=== PATIENT | female | born 1940 | race Caucasian/White ===

== ENCOUNTER → 2020-09-20 14:15 | Outpatient (BNVA) | payer MEDICARE, SELFPAY | PROVIDERS: Family Provider Family Medicine; Visit Provider Obstetrics & Gynecology | DX: R32 Unspecified urinary incontinence (principal) | CPT/HCPCS: 87086 ==

== ENCOUNTER 2020-09-25 21:10 | Emergency (ER) | payer MEDICARE, SELFPAY ==
[2020-09-25 21:13] VITALS: BP 142/72; PULSE 91; RESP 17; TEMP 36.6; O2SAT 95; BMI 28.5
[2020-09-25 21:18] VITALS: BP 142/72; PULSE 90; RESP 20; O2SAT 95
[2020-09-25 21:30] LABS: Basophils % 0.6 %; Eosinophils # 0.1 10^3/uL (0.0-0.8); Eosinophils % 1.5 %; Hematocrit 24.2 % (37.0-47.0); Hemoglobin 7.3 g/dL (11.5-15.3); Lymphocytes # 0.9 10^3/uL (0.8-4.8); Lymphocytes % 18.2 %; Mean Corpuscular HGB Conc 30.2 g/dL (30.0-36.0); Mean Corpuscular Hemoglobin 30.9 pg (28.0-34.0); Mean Corpuscular Volume 102.5 fL (81-99); Mean Platelet Volume 8.4 fL (7.4-10.4); Monocytes # 0.4 10^3/uL (0.2-0.9); Monocytes % 8.9 %; Neutrophils % 69.7 %; Nucleated Red Blood Cells % 0 %; Platelet Count 289 10^3/cmm (130-400); Red Blood Count 2.36 10^6/uL (4.1-5.3); Red Cell Distribution Width 15.9 % (12.1-15.1); White Blood Count 4.7 10^3/uL (4.0-10.0)
[2020-09-25 21:44] LABS: Alanine Aminotransferase 13 U/L (0-33); Alkaline Phosphatase 102 IU/L (35-105); Anion Gap 9.4 (5-19); Aspartate Amino Transferase 13 U/L (0-32); Blood Urea Nitrogen 18 mg/dL (8-23); Calcium 7.6 mg/dL (8.5-10.5); Carbon Dioxide 27 mmol/L (22-29); Chloride 101 mmol/L (98-107); Creatinine Clr Calc Pharmacy 61.9629; Globulin 2.6 g/dL (1.3-4.6); Glucose 115 mg/dL (65-115); Osmolality Calculated 279 mOsm/kg (285-295); Potassium 4.4 mmol/L (3.5-5.1); Sodium 133 mmol/L (136-145); Total Bilirubin 0.2 mg/dL (0.15-1.2); Total Protein 4.6 g/dL (6.6-8.7)
[2020-09-25 22:00] VITALS: BP 126/61; PULSE 79; RESP 19; O2SAT 97
--- NOTE | 2020-09-25 22:00 | ED_ITS ---
HPI - Recheck/Abnormal Lab/Rx General: Chief Complaint: Recheck/Abnormal Lab/Rx Stated Complaint: low hemoglobin Time Seen by Provider: 09/25/20 21:14 History of Present Illness: HPI narrative: The patient is a 80-year-old female with a sacral pressure ulcer who comes to the ER sent after she was admitted to a custodial for wound care of this ulcer. Her admission hemoglobin was 6.8. She is asymptomatic of this and denies shortness of breath. She says she has no known history of anemia or GI bleeds. Denies black or bloody stool or vomit. Hemoglobin on arrival here is 7.3 and her Hemoccult stool is negative. Stable for discharge back to the custodial Review of Systems General: Reports: 10 or more systems reviewed and unremarkable except in HPI and below Const: Denies: fatigue Eyes: Denies: change in vision, blurry vision or eye redness ENMT: Denies: throat pain, swelling of lips/tongue, ear or mastoid pain or nasal congestion Card: Denies: chest pain, palpitations, irregular heart rhythm, edema, dyspnea on exertion or orthopnea Resp: Denies: dyspnea, productive cough or non-productive cough GI: Denies: abdominal pain, diarrhea or GI cramping : Denies: flank pain, difficulty voiding, urinary frequency or urinary urgency Musc: Denies: neck pain, back pain, extremity pain, joint pain, joint redness, limited range of motion or muscle weakness Skin/Breast: Denies: rash, pruritus, erythema, skin pain or skin tenderness Neuro: Denies: headache(s), numbness in extremities, weakness in extremities, sensory changes, difficulty walking, dizziness, confusion or Slurred speech pr esent Psych: Denies: anxiety or depression Endo: Denies: polyuria All/Imm: Denies: urticaria, throat swelling or tongue swelling PFSH ED PFSH: Medical History (Updated 09/25/20 @ 23:06 by Fab Champagne MD) Pressure ulcer of coccygeal region, stage 3 Shingles years ago Surgical History (Updated 09/24/20 @ 16:18 by Felipe Mcgrath MD) S/P tonsillectomy and adenoidectomy Family History Mother Stomach cancer Father Stroke Social History (Updated 09/24/20 @ 16:19 by Felipe Mcgrath MD) Smoking and tobacco status: former smoker Quit status (tobacco): has quit using tobacco Year quit tobacco: years ago Alcohol intake: never Physical Exam Const: COMMON NORMALS: no acute distress, average body habitus, patient oriented x3, no limitations, healthy appearing, alert and well nourished GENERAL APPEARANCE: cooperative, comfortable, well kempt and well developed ORIENTATION/CONSCIOUSNESS: Yes awake, Yes oriented to person, Yes oriented to place and Yes oriented to time HENMT: COMMON NORMALS: normocephalic, external ears normal and Normal external nose present HEAD & SCALP: normal to inspection and normocephalic NOSE: Normal external nose present EXTERNAL EAR: Yes external ears normal MOUTH: Normal oral and palatal mucosa present THROAT: posterior oropharynx normal Eye: COMMON NORMALS: Equal, round and reactive pupils present and EOMs intact bilaterally GENERAL EYE: appearance normal, both eyes and all related structures PUPIL: Yes Equal, round and reactive pupils present Neck/C-Spine: COMMON NORMALS: full ROM, no lymphadenopathy, no meningeal signs and no JVD GENERAL: Yes normal visual inspection Lymph: LYMPHATIC: no lymphadenopathy noted Chest: COMMONS NORMALS: normal inspection of the chest and normal palpation of entire chest wall Resp: COMMON NORMALS: normal respiratory effort, No retractions, No use of accessory muscles, clear to auscultation bilaterally and percussion normal EFFORT & INSPECTION: Yes able to speak in complete sentences AUSCULTATION: clear to auscultation bilaterally PERCUSSION: percussion normal Cardio: COMMON NORMALS: no JVD, regular rate, regular rhythm, S1 normal heart sound present, S2 normal heart sound present and Peripheral pulses 2+ throughout RATE: regular rate RHYTHM: regular rhythm HEART SOUNDS: S1 normal heart sound present and S2 normal heart sound present PERIPHERAL PULSES: Peripheral pulses 2+ throughout GI: COMMON NORMALS: Normal to inspection, nondistended, normoactive bowel sounds present, Soft to palpation, non-tender and no masses INSPECTION: Yes normal to inspection PALPATION: Yes Soft to palpation : COMMON NORMALS: Yes no CVA tenderness BLADDER/KIDNEY EXAM: Yes no CVA tenderness Back/Pelvis: COMMON NORMALS: no CVA tenderness, thoracic and lumbar spine normal to inspection, no thoracic nor lumbar tenderness and thoraco-lumbar ROM normal OTHER: The patient has a stage III ulcer to her sacral region. It is clean and appears well taken care of. She is admitted to a custodial for care of this. Extremity: COMMON NORMALS: normal to inspection, full ROM, capillary refill normal, no joint enlargement and no pedal edema GENERAL: Yes normal exam except as noted Neuro: COMMON NORMALS: patient oriented x3, CN's II-XII intact bilaterally, moves all extremities, no focal motor deficits, no sensory deficits noted and gait normal SENSORIUM/ORIENTATION: Yes alert, Yes oriented to person, Yes oriented to place and Yes oriented to time MENINGEAL SIGNS: Yes no meningeal signs Psych: COMMON NORMALS: mental status grossly normal, Normal thought process present, cooperative, normal affect and speech normal APPEARANCE: Yes well kempt ATTITUDE: Yes calm SPEECH: Yes normal speech THOUGHT PROCESS: Normal thought process present Skin: COMMON NORMALS: no rashes or lesions noted GENERAL SKIN EXAM: no rashes or lesions noted Course Vital Signs: Vital signs: Vital Signs Temperature 97.8 F 09/25/20 21:13 Pulse Rate 90 09/25/20 21:18 Respiratory Rate 20 H 09/25/20 21:18 Blood Pressure 142/72 09/25/20 21:18 Pulse Oximetry 95 09/25/20 21:18 MDM - Recheck/Abnormal Lab/Rx MDM Narrative: Medical decision making narrative: The patient came here after she was admitted to a custodial for her sacral ulcer with a hemoglobin of 6.8. She is asymptomatic of this. Hemoccult stool in the ED is negative. Hemoglobin on arrival is 7.3. Stable for discharge back to the custodial. Recommended repeat in a few days to make sure it is stable. Lab Data: Labs: Lab Results 09/25/20 09/25/20 09/25/20 Range/Units 09:31 21:18 21:18 WBC 4.7 (4.0-10.0) 10^3/ uL RBC 2.36 L (4.1-5.3) 10^6/u L Hgb 7.3 L (11.5-15.3) g/dL Hct 24.2 L (37.0-47.0) % MCV 102.5 H (81-99) fL MCH 30.9 (28.0-34.0) pg MCHC 30.2 (30.0-36.0) g/dL RDW 15.9 H (12.1-15.1) % Plt Count 289 (130-400) 10^3/c mm MPV 8.4 (7.4-10.4) fL Neut % (Auto) 69.7 % Lymph % (Auto) 18.2 % Camp % (Auto) 8.9 % Eos % (Auto) 1.5 % Baso % (Auto) 0.6 % Neut # (Auto) 3.30 (1.8-7.7) 10^3/u L Lymph # (Auto) 0.9 (0.8-4.8) 10^3/u L Camp # (Auto) 0.4 (0.2-0.9) 10^3/u L Eos # (Auto) 0.1 (0.0-0.8) 10^3/u L Baso # (Auto) 0.0 (0.0-0.1) 10^3/u L Nucleated RBC % (a uto) 0 % Nucleated RBCs # 0.0 /100WBC Sodium 133 L (136-145) mmol/L Potassium 4.4 (3.5-5.1) mmol/L Chloride 101 (98-107) mmol/L Carbon Dioxide 27 (22-29) mmol/L Anion Gap 9.4 (5-19) BUN 18 (8-23) mg/dL Creatinine 0.8 (0.5-0.9) mg/dL GFR Calculation Not Reportable Glucose 115 (65-115) mg/dL Calculated Osmolal ity 279 L (285-295) mOsm/k g Calcium 7.6 L (8.5-10.5) mg/dL Total Bilirubin 0.2 (0.15-1.2) mg/dL AST 13 (0-32) U/L ALT 13 (0-33) U/L Alkaline Phosphata se 102 (35-105) IU/L Total Protein 4.6 L (6.6-8.7) g/dL Albumin 2.0 L (3.5-5.2) g/dL Globulin 2.6 (1.3-4.6) g/dL Blood Type B Positive Rho(D) Type Positive Antibody Screen Negative Discharge Plan Discharge Patient Disposition: [facility] Clinical Impression: Pressure ulcer of coccygeal region, stage 3, Anemia Condition: Stable Prescriptions: No Action clindamycin HCl 300 mg capsule 300 mg PO TID RF: 0 Discharge Orders: Discharge ED (Routine); Ordered 09/25/20 Ordered By: Fab Champagne Referrals: Emily Cabral DO [Primary Care Provider] - Discharge Diet: Advance as tolerated Discharge Activity: Resume usual activity Patient Instructions: Anemia (ED) Activity Restrictions/Additional Instructions: You likely have chronic anemia related to your age and multiple medical conditi ons including your sacral ulcer. Please continue to get care for that at the custodial and have your blood rechecked in a few days to make sure your anemia is stable or improving. Return to the ER if it is not. Coding Level of Care Code ED Professional Architect for Sarag Fwd Exam Comprehensive
[2020-09-25 23:00] VITALS: BP 138/59; PULSE 86; RESP 18; O2SAT 97
[2020-09-26 00:50] VITALS: BP 133/63; PULSE 95; O2SAT 93
[2020-09-26 01:16] VITALS: BP 150/63; PULSE 91; RESP 20; O2SAT 95
--- NOTE | 2020-09-26 01:40 | PC.NURSE ---
Pt given a snack of vanilla pudding and a cheese stick at this time with orange juice per request.
== END 2020-09-26 02:00 | disposition skilled nursing facility (03) ==
PROVIDERS: Emergency Provider Family Medicine; PCP Family Medicine
DX: D64.9 Anemia, unspecified (principal); L89.153 Pressure ulcer of sacral region, stage 3; Z87.891 Personal history of nicotine dependence
CPT/HCPCS: 12345; 80053; 85025; 86850; 86900; 99282

== ENCOUNTER 2020-09-26 12:00 | Outpatient (CLI) | payer MEDICARE, SELFPAY | END 2020-09-26 12:01 | disposition home or self-care (01) | PROVIDERS: PCP Family Medicine; Visit Provider Nurse Practitioner Family | DX: R62.7 Adult failure to thrive (principal); I50.1 Left ventricular failure, unspecified | CPT/HCPCS: 85014; 85018 ==

== ENCOUNTER → 2020-09-27 10:50 | Day surgery (SDC) | payer MEDICARE, SELFPAY ==
[2020-09-27] VITALS (8 sets, daily range): BP systolic 104–139; BP diastolic 57–83; PULSE 87–109; RESP 16–18; TEMP 36.5–37.4; O2SAT 94–99; BMI 29.4
[2020-09-27 11:42] LABS: Hematocrit 24.1 % (37.0-47.0)
[2020-09-27] MEDS: acetaminophen 325 mg Tablet 650 MG PO (12:20)
[2020-09-27] MEDS: diphenhydrAMINE 25 mg Capsule PO (12:20)
[2020-09-27] MEDS: sodium chloride 0.9% (100 ml) 100 ML IV (12:22)
[2020-09-27] MEDS: FUROsemide 10 mg/mL SDV 4mL 40 MG IVP (15:55)
== END ==
PROVIDERS: Nurse Practitioner Family; PCP Family Medicine; Visit Provider Nurse Practitioner Family
DX: D64.9 Anemia, unspecified (principal)
CPT/HCPCS: 36430; 85014; 85018; 86850; 86900; 86920; J0131; J1940; P9016

== ENCOUNTER 2020-10-11 04:07 | Inpatient (IN) | payer MEDICARE, SELFPAY ==
[2020-10-11] VITALS (88 sets, daily range): BP systolic 93–156; BP diastolic 43–94; PULSE 89–122; RESP 13–32; TEMP 36.4–38.2; O2SAT 90–100; BMI 29.4
--- NOTE | 2020-10-11 04:12 | CTR_ITS ---
PROCEDURE INFORMATION: Exam: CT Abdomen And Pelvis With Contrast Exam date and time: 10/11/2020 4:14 AM Age: 80 years old Clinical indication: Abdominal pain; Generalized; Patient HX: Diffuse abd pain with bloody stools TECHNIQUE: Imaging protocol: Computed tomography of the abdomen and pelvis with contrast. Radiation optimization: All CT scans at this facility use at least one of these dose optimization techniques: automated exposure control; mA and/or kV adjustment per patient size (includes targeted exams where dose is matched to clinical indication); or iterative reconstruction. Contrast material: OMNI 300; Contrast volume: 95 ml; Contrast route: INTRAVENOUS (IV); COMPARISON: No relevant prior studies available. RADIATION DOSE METRICS: Total DLP (mGy-cm): 961.83 FINDINGS: Pleural spaces: Moderate right and small left pleural effusions with segmental right lower lobe atelectasis. Liver: Normal. No mass. Gallbladder and bile ducts: No calcified stones. No pericholecystic inflammatory changes. No ductal dilation. Pancreas: Normal. No ductal dilation. Spleen: Calcified splenic granulomas. Adrenal glands: 14 mm heterogeneous right adrenal nodule. Kidneys and ureters: Normal. No hydronephrosis. Stomach and bowel: Numerous mildly dilated small bowel loops extending proximally from the terminal ileum with colonic distention, likely due to ileus. Appendix: Normal appendix. Intraperitoneal space: Large amount of pneumoperitoneum. Small amount of ascites with minimal layering debris in the pelvis. Vasculature: No abdominal aortic aneurysm. Lymph nodes: No enlarged lymph nodes. Urinary bladder: Unremarkable as visualized. Reproductive: Unremarkable as visualized. Bones/joints: Unremarkable. No acute fracture. Soft tissues: Small right inguinal hernia. Anasarca. CT/CT abdomen pelvis w con* [id number] IMPRESSION: 1. Large amount of pneumoperitoneum. This is compatible with perforated viscus in the absence of recent surgery. 2. Numerous mildly dilated small bowel loops extending proximally from the terminal ileum with colonic distention, likely due to ileus. 3. 14 mm heterogeneous right adrenal nodule. Consider 12 month follow-up adrenal CT. (Rafael Heaton, ACR White Paper, 2017) 4. Small amount of ascites with minimal layering debris in the pelvis. 5. Anasarca. 6. Moderate right and small left pleural effusions with segmental right lower lobe atelectasis. Radiation Dose CTDIVOL = (mGy): DLP = 961.83 (mGy-cm)
--- NOTE | 2020-10-11 04:14 | W.ED.ABDPA2 ---
HPI - Abdominal Pain General: Chief Complaint: Abdominal Pain Stated Complaint: ABD PAIN , BLOOD IN STOOL Time Seen by Provider: 10/11/20 04:11 Source: patient and EMS Mode of arrival: EMS Limitations: no limitations History of Present Illness: HPI narrative: 80-year-old female who presents here by EMS with abdominal pain. 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 She states that the pain is diffuse and is worsened tonight in 1 to be evaluated. States the pain is a 5 out of 10. She denies any vomiting or diarrhea. She denies any worsening improving factors. She has been afebrile. MD elicited complaint: abdominal pain Associated Symptoms: Reports hematochezia; Denies chills, diarrhea, dysuria, fever(s), nausea and vomiting Review of Systems Const: Denies: fever(s), chills, body aches or change in appetite Eyes: Denies: blurry vision or eye discomfort ENMT: Denies: throat pain or dental pain Card: Denies: chest pain Resp: Denies: dyspnea GI: Reports: abdominal pain and hematochezia; Denies: nausea, vomiting or diarrhea : Denies: dysuria Musc: Denies: neck pain or back pain Skin/Breast: Denies: rash Neuro: Denies: headache(s) Psych: Denies: depression Humberto/Lymph: Denies: easy bruising All/Imm: Denies: urticaria PFSH ED PFSH: Medical History (Updated 10/04/20 @ 00:01 by ) Pressure ulcer of coccygeal region, stage 3 Shingles years ago Surgical History (Updated 09/24/20 @ 16:18 by Felipe Mcgrath MD) S/P tonsillectomy and adenoidectomy Family History Mother Stomach cancer Father Stroke Social History (Updated 09/24/20 @ 16:19 by Felipe Mcgrath MD) Smoking and tobacco status: former smoker Quit status (tobacco): has quit using tobacco Year quit tobacco: years ago Alcohol intake: never Physical Exam Const: COMMON NORMALS: no acute distress, patient oriented x3 and healthy appearing HENMT: COMMON NORMALS: normocephalic and atraumatic HEAD & SCALP: normocephalic and atraumatic Eye: COMMON NORMALS: Equal, round and reactive pupils present and EOMs intact bilaterally PUPIL: Yes Equal, round and reactive pupils present Neck/C-Spine: COMMON NORMALS: full ROM and supple Chest: COMMONS NORMALS: normal inspection of the chest and normal palpation of entire chest wall Resp: COMMON NORMALS: normal respiratory effort, No retractions, No use of accessory muscles and clear to auscultation bilaterally AUSCULTATION: clear to auscultation bilaterally Cardio: COMMON NORMALS: regular rhythm and No murmurs present (Cardio) RATE: tachycardic RHYTHM: regular rhythm GI: COMMON NORMALS: Normal to inspection, nondistended, normoactive bowel sounds present, Soft to palpation and no masses PALPATION: Yes Soft to palpation OTHER: Diffuse abdominal tenderness, rectal exam shows brown stool that is Hemoccult positive. She does have a very large hemorrhoid noted on rectal exam Extremity: COMMON NORMALS: normal to inspection and full ROM Neuro: COMMON NORMALS: patient oriented x3, moves all extremities and no focal motor deficits Psych: COMMON NORMALS: mental status grossly normal, Normal thought process present and cooperative THOUGHT PROCESS: Normal thought process present Skin: COMMON NORMALS: no rashes or lesions noted and no wounds GENERAL SKIN EXAM: no rashes or lesions noted Course Vital Signs: Vital signs: Vital Signs Temperature 97.5 F L 10/11/20 04:14 Pulse Rate 119 H 10/11/20 05:07 Respiratory Rate 26 H 10/11/20 05:07 Blood Pressure 130/62 10/11/20 05:07 Pulse Oximetry 92 10/11/20 05:07 MDM - Abdominal Pain MDM Narrative: Medical decision making narrative: Munira presents here with abdominal pain. CT does show free air in her abdomen with likely bowel perforation. I spoke to Dr. Morales and he is going to take her to the operating room I will start her on IV antibiotics. I informed her of this and she does want surgery. I will try to contact her son and give him an update as well. Lab Data: Labs: Lab Results 10/11/20 10/11/20 10/11/20 Range/Units 04:18 04:18 04:18 WBC 8.7 (4.0-10.0) 10^3/ uL RBC 4.43 (4.1-5.3) 10^6/u L Hgb 13.3 (11.5-15.3) g/dL Hct 41.4 (37.0-47.0) % MCV 93.5 (81-99) fL MCH 30.0 (28.0-34.0) pg MCHC 32.1 (30.0-36.0) g/dL RDW 14.5 (12.1-15.1) % Plt Count 439 H (130-400) 10^3/c mm MPV 9.0 (7.4-10.4) fL Neut % (Auto) 87.0 % Lymph % (Auto) 6.5 % [place] % (Auto) 4.2 % Eos % (Auto) 0.8 % Baso % (Auto) 0.8 % Neut # (Auto) 7.58 (1.8-7.7) 10^3/u L Lymph # (Auto) 0.6 L (0.8-4.8) 10^3/u L [place] # (Auto) 0.4 (0.2-0.9) 10^3/u L Eos # (Auto) 0.1 (0.0-0.8) 10^3/u L Baso # (Auto) 0.1 (0.0-0.1) 10^3/u L Nucleated RBC % (a uto) 0 % Nucleated RBCs # 0.0 /100WBC Sodium 138 (136-145) mmol/L Potassium 3.0 L (3.5-5.1) mmol/L Chloride 98 (98-107) mmol/L Carbon Dioxide 30 H (22-29) mmol/L Anion Gap 13.0 (5-19) BUN 20 (8-23) mg/dL Creatinine 0.8 (0.5-0.9) mg/dL GFR Calculation Not Reportable Glucose 129 H (65-115) mg/dL Calculated Osmolal ity 290 (285-295) mOsm/k g Lactic Acid 1.7 (0.5-2.2) mmol/L Calcium 8.2 L (8.5-10.5) mg/dL Total Bilirubin 0.6 (0.15-1.2) mg/dL AST 8 (0-32) U/L ALT 6 (0-33) U/L Alkaline Phosphata se 107 H (35-105) IU/L Total Protein 5.7 L (6.6-8.7) g/dL Albumin 2.6 L (3.5-5.2) g/dL Globulin 3.1 (1.3-4.6) g/dL Lipase 21 (13-60) U/L Imaging Data ^: CT Abd/Pel: Attestation: I personally reviewed and interpreted this imaging study as follows: Radiologist's impression: [facility] [address] [address] Scan Report Signed Patient: Munira Crawford Unit #: [id number] : 1940 Age/Sex: 80 / F ADM Date: 10/11/20 Loc: ER Room/Bed: Attending Dr: Ordering Provider/Ordering MD: Kate eHlm MD Date of Service: 10/11/20 Procedure(s): CT abdomen pelvis w con* [id number] Accession Number(s): [id number] Report Number: [id number] PROCEDURE INFORMATION: Exam: CT Abdomen And Pelvis With Contrast Exam date and time: 10/11/2020 4:14 AM Age: 80 years old Clinical indication: Abdominal pain; Generalized; Patient HX: Diffuse abd pain with bloody stools TECHNIQUE: Imaging protocol: Computed tomography of the abdomen and pelvis with contrast. Radiation optimization: All CT scans at this facility use at least one of these dose optimization techniques: automated exposure control; mA and/or kV adjustment per patient size (includes targeted exams where dose is matched to clinical indication); or iterative reconstruction. Contrast material: OMNI 300; Contrast volume: 95 ml; Contrast route: INTRAVENOUS (IV); COMPARISON: No relevant prior studies available. RADIATION DOSE METRICS: Total DLP (mGy-cm): 961.83 FINDINGS: Pleural spaces: Moderate right and small left pleural effusions with segmental right lower lobe atelectasis. Liver: Normal. No mass. Gallbladder and bile ducts: No calcified stones. No pericholecystic inflammatory changes. No ductal dilation. Pancreas: Normal. No ductal dilation. Spleen: Calcified splenic granulomas. Adrenal glands: 14 mm heterogeneous right adrenal nodule. Kidneys and ureters: Normal. No hydronephrosis. Stomach and bowel: Numerous mildly dilated small bowel loops extending proximally from the terminal ileum with colonic distention, likely due to ileus. Appendix: Normal appendix. Intraperitoneal space: Large amount of pneumoperitoneum. Small amount of ascites with minimal layering debris in the pelvis. Vasculature: No abdominal aortic aneurysm. Lymph nodes: No enlarged lymph nodes. Urinary bladder: Unremarkable as visualized. Reproductive: Unremarkable as visualized. Bones/joints: Unremarkable. No acute fracture. Soft tissues: Small right inguinal hernia. Anasarca. CT/CT abdomen pelvis w con* [id number] IMPRESSION: 1. Large amount of pneumoperitoneum. This is compatible with perforated viscus in the absence of recent surgery. 2. Numerous mildly dilated small bowel loops extending proximally from the terminal ileum with colonic distention, likely due to ileus. 3. 14 mm heterogeneous right adrenal nodule. Consider 12 month follow-up adrenal CT. (Rafael Heaton, ACR White Paper, 2017) 4. Small amount of ascites with minimal layering debris in the pelvis. 5. Anasarca. 6. Moderate right and small left pleural effusions with segmental right lower lobe atelectasis. Radiation Dose CTDIVOL = (mGy): EKG Data ^: EKG 1: Attestation: I personally reviewed and interpreted this EKG as follows: EKG interpretation date: 10/11/20 EKG interpretation time: 04:22 Interpretation: sinus tach rbbb hr [address] elevation qrs 117 qtc 397 Critical Care Time Critical Care Time: Critical Care Time: Yes Total Critical Care Time: 35 Attestation: This case had a high probability of a clinically significant, sudden, or life threatening deterioration of this patient's condition which required my full and direct attention, intervention and personal management. Discharge Plan Discharge Prescriptions: No Action clindamycin HCl 300 mg capsule 300 mg PO TID RF: 0 bisacodyl 5 mg Suppository 5 mg WA DAILY RF: 0 Senna-S 8.6-50 mg Tablet 1 tab-cap PO DAILY PRN (Reason: Constipation) RF: 0 Prostat Tablet 1 tab PO BID RF: 0 Milk of Magnesia 400 mg/5 mL Suspension 5 ml PO DAILY PRN (Reason: Constipation) RF: 0 Miralax 1 packet PO DAILY RF: 0 Coding Level of Care Code ED Student Financial Aid Manager for Chg Fwd Exam Comprehensive
--- NOTE | 2020-10-11 04:15 | ECG_ITS ---
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 Measurements Intervals [place] Rate: 131 P: 47 [place]: 131 QRS: -53 QRSD: 117 T: 40 QT: 320 QTc: 473 Interpretive Statements SINUS TACHYCARDIA WITH FREQUENT SUPRAVENTRICULAR PREMATURE COMPLEXES PATTERN CONSISTENT WITH PULMONARY DISEASE RIGHT BUNDLE BRANCH BLOCK [120+ ms QRS DURATION, UPRIGHT V1, 40+ ms S IN I/aVL/V4/V5/V6] LEFT ANTERIOR FASCICULAR BLOCK [QRS AXIS <= -45, QR IN I, RS IN II] INFERIOR MYOCARDIAL INFARCTION , PROBABLY OLD [40+ ms Q WAVE AND/OR ST/T ABNORMALITY IN II/aVF] No previous ECG available for comparison Electronically Signed On 10-12-2020 19:14:18 ENVIRONMENTAL COORDINATOR by Reza Matta M.D. [id number]
[2020-10-11 04:36] LABS: Basophils # 0.1 10^3/uL (0.0-0.1); Basophils % 0.8 %; Eosinophils # 0.1 10^3/uL (0.0-0.8); Eosinophils % 0.8 %; Hematocrit 41.4 % (37.0-47.0); Hemoglobin 13.3 g/dL (11.5-15.3); Lymphocytes # 0.6 10^3/uL (0.8-4.8); Lymphocytes % 6.5 %; Mean Corpuscular HGB Conc 32.1 g/dL (30.0-36.0); Mean Corpuscular Volume 93.5 fL (81-99); Monocytes # 0.4 10^3/uL (0.2-0.9); Monocytes % 4.2 %; Neutrophils # 7.58 10^3/uL (1.8-7.7); Nucleated Red Blood Cells % 0 %; Platelet Count 439 10^3/cmm (130-400); Red Blood Count 4.43 10^6/uL (4.1-5.3); Red Cell Distribution Width 14.5 % (12.1-15.1); White Blood Count 8.7 10^3/uL (4.0-10.0)
[2020-10-11] MEDS: iohexol 300 mg/mL 100 mL Btl IV (04:44)
[2020-10-11 04:51] LABS: Alanine Aminotransferase 6 U/L (0-33); Albumin Level 2.6 g/dL (3.5-5.2); Alkaline Phosphatase 107 IU/L (35-105); Aspartate Amino Transferase 8 U/L (0-32); Blood Urea Nitrogen 20 mg/dL (8-23); Calcium 8.2 mg/dL (8.5-10.5); Carbon Dioxide 30 mmol/L (22-29); Chloride 98 mmol/L (98-107); Globulin 3.1 g/dL (1.3-4.6); Glucose 129 mg/dL (65-115); Lactic Sepsis W/Reflex 1.7 mmol/L (0.5-2.2); Lipase 21 U/L (13-60); Osmolality Calculated 290 mOsm/kg (285-295); Sodium 138 mmol/L (136-145); Total Bilirubin 0.6 mg/dL (0.15-1.2); Total Protein 5.7 g/dL (6.6-8.7)
[2020-10-11] MEDS: sodium chloride 0.9% 1,000 ML 999 ML IV ×2 (05:03→06:04)
[2020-10-11 05:35] LABS: Add Urine Microscopic? YES; Bilirubin Urine Neg (Negative); Blood Urine Neg (Negative); Glucose Urine UA Norm (Normal); Ketones Urine Negative (Negative); Leukocyte Esterase Urine 1+ (Negative); Nitrate Urine Negative (Negative); Protein Urine Trace (Negative); Specific Gravity, Urine 1.005 (1.005-1.030); Urine Appearance Cloudy (CLEAR); Urine Color Yellow (Yellow); Urobilinogen Urine Norm (Negative); pH Urine 7 (5-7)
[2020-10-11 05:39] LABS: RBC Urine 0-4 /hpf (0-2); WBC Urine 55-80 /hpf (0-5)
[2020-10-11 05:40] LABS: Add Urine Culture? Yes; Bacteria Urine 3+ /hpf; Squamous Epithelial Cell Urine 0-4 /hpf (0-5)
[2020-10-11] MEDS: piperacillin-tazobactam 3.375 GM in sodium chloride 0.9% (plus) 50 ML IV ×3 (06:00→21:12)
--- NOTE | 2020-10-11 06:22 | PM.HP ---
Providers/Chief Complaint Primary Care Provider: Emily Cabral DO Chief Complaint: ABD PAIN , BLOOD IN STOOL History of Present Illness Munira Crawford is a 80 year old female who lives at [facility] who presents to the ER with 2-day history of abdominal pain. Patient appears to be a bit confused, denies any nausea or vomiting. She appears to be on multiple medications for a bowel regimen. CT scan in the ER showed pneumoperitoneum of unknown etiology. Patient is currently hemodynamically stable. Medications/Allergies Home Medications Medication Instructions Recorded Confirmed Last Taken Type clindamycin HCl 300 mg capsule 300 mg PO TID 09/20/20 09/27/20 Unknown History Miralax 1 packet PO DAILY 09/27/20 09/27/20 Unknown History bisacodyl 5 mg DC DAILY 09/27/20 09/27/20 Unknown History magnesium hydroxide [Milk of 5 ml PO DAILY PRN 09/27/20 09/27/20 Unknown History Magnesia] pollens extract [Prostat] 1 tab PO BID 09/27/20 09/27/20 Unknown History sennosides-docusate sodium 1 tab-cap PO DAILY PRN 09/27/20 09/27/20 Unknown History [Senna-S] Allergies Allergy/AdvReac Type Severity Reaction Status Date / Time No Known Allergies Allergy Verified 10/11/20 04:18 PFSH Acute PFSH: Medical History Pressure ulcer of coccygeal region, stage 3 Shingles years ago Surgical History S/P tonsillectomy and adenoidectomy Family History Mother Stomach cancer Father Stroke Social History Smoking and tobacco status: former smoker Quit status (tobacco): has quit using tobacco Year quit tobacco: years ago Alcohol intake: never Vitals/I&O/Wt Last Vital Signs Temp 97.5 F L 10/11/20 04:14 Pulse 122 H 10/11/20 05:49 Resp 25 H 10/11/20 05:49 BP 156/69 10/11/20 05:49 Pulse Ox 92 10/11/20 05:49 Weight last 48 hrs Weight 188 lb Physical Exam Narrative: EXAM NARRATIVE: HEENT: Normocephalic Eye: Sclera /conjunctiva normal Respiratory and chest: Bilateral clear breath sounds on auscultation Cardiovascular: Normal S1 and S2 heart sounds Abdomen: Soft to palpation, distended, guarding present, right lower quadrant incision, right inguinal hernia Neurological: Oriented to place person and time Skin: Intact, no lesions appreciated on gross exam Data : 10/11/20 04:18 10/11/20 04:18 A&P Assessment and plan (1) Pneumoperitoneum of unknown etiology: 80-year-old female with 2-day history of abdominal pain with pneumoperitoneum of unknown etiology. Plan for laparoscopic possible laparotomy, possible bowel resection, possible ostomy Discussed the concerns with the patient as well as her son Dayo Crawford [phone] Status: Acute Attestations Medical Necessity Statement*: Pneumoperitoneum requiring greater than 2 nights of inpatient stay after surgery Coding Level of Care Code Acute Physicist [employer]oust[employer] for [facility] Diagnoses Pneumoperitoneum of unknown etiology K66.8
--- NOTE | 2020-10-11 06:35 | P.ANESASSM_ITS ---
Pre-Anesthetic Assessment Pre-Anesthetic Assessment: Height/Weight: Height 1.7 m Weight 85.275 kg Temp Pulse Resp BP Pulse Ox 99.7 F H 120 H 18 149/94 93 10/11/20 06:23 10/11/20 06:22 10/11/20 06:22 10/11/20 06:22 10/11/20 06:22 Preop Diagnosis: Pneumoperitoneum Proposed Procedure: Operation Date: 10/11/20 05:55 Proposed Procedures p Laparoscopic Colon Resection(Not Applicable) - Luis Morales MD Was Beta Carol Ann taken within 24 hours: N/A Social: Social History: No alcohol and No tobacco Exam: Pre-Anes Outpt Exam: alert and clear to auscultation bilaterally (clear but decreased R>L, slight murmur) Airway: Submandibular: WNL Cervical ROM: WNL MP: 2 Pulmonary: Pulmonary: COPD CV/HEM: CV/HEM: Murmur GI: Comments: Perforated bowel, bowel obstruction Neuropsych: Neuropsych: Dementia Anesthetic Plan: ASA status: 3E Anesthesia: General Risk of > 500 ml blood loss (7ml/kg in children): No PFSH Anesthesia PFSH: Medical History Pressure ulcer of coccygeal region, stage 3 Shingles years ago Surgical History S/P tonsillectomy and adenoidectomy Family History Mother Stomach cancer Father Stroke Social History Smoking and tobacco status: former smoker Quit status (tobacco): has quit using tobacco Year quit tobacco: years ago Alcohol intake: never Data Anesthesia CBC & Chem 7: 10/11/20 04:18 10/11/20 04:18 Other Labs: Laboratory Results - last 48 hr 10/11/20 10/11/20 10/11/20 04:18 04:18 04:18 WBC 8.7 RBC 4.43 Hgb 13.3 Hct 41.4 MCV 93.5 MCH 30.0 MCHC 32.1 RDW 14.5 Plt Count 439 H MPV 9.0 Neut % (Auto) 87.0 Lymph % (Auto) 6.5 [place] % (Auto) 4.2 Eos % (Auto) 0.8 Baso % (Auto) 0.8 Neut # (Auto) 7.58 Lymph # (Auto) 0.[address] # (Auto) 0.4 Eos # (Auto) 0.1 Baso # (Auto) 0.1 Nucleated RBC % (auto) 0 Nucleated RBCs # 0.0 Sodium 138 Potassium 3.0 L Chloride 98 Carbon Dioxide 30 H Anion Gap 13.0 BUN 20 Creatinine 0.8 GFR Calculation Not Reportable Glucose 129 H Calculated Osmolality 290 Lactic Acid 1.7 Calcium 8.2 L Total Bilirubin 0.6 AST 8 ALT 6 Alkaline Phosphatase 107 H Total Protein 5.7 L Albumin 2.6 L Globulin 3.1 Lipase 21 Urine Color Urine Appearance Urine pH Ur Specific Mitchell Urine Protein Urine Glucose (UA) Urine Ketones Urine Blood Urine Nitrate Urine Bilirubin Urine Urobilinogen Ur Leukocyte Esterase Urine RBC Urine WBC Ur Squamous Epith Cells Amorphous Sediment Urine Bacteria 10/11/20 04:35 WBC RBC Hgb Hct MCV MCH MCHC RDW Plt Count MPV Neut % (Auto) Lymph % (Auto) [place] % (Auto) Eos % (Auto) Baso % (Auto) Neut # (Auto) Lymph # (Auto) [place] # (Auto) Eos # (Auto) Baso # (Auto) Nucleated RBC % (auto) Nucleated RBCs # Sodium Potassium Chloride Carbon Dioxide Anion Gap BUN Creatinine GFR Calculation Glucose Calculated Osmolality Lactic Acid Calcium Total Bilirubin AST ALT Alkaline Phosphatase Total Protein Albumin Globulin Lipase Urine Color Yellow Urine Appearance Cloudy Urine pH 7 Ur Specific Mitchell 1.005 Urine Protein Trace Urine Glucose (UA) Norm Urine Ketones Negative Urine Blood Neg Urine Nitrate Negative Urine Bilirubin Neg Urine Urobilinogen Norm Ur Leukocyte Esterase 1+ H Urine RBC 0-4 H Urine WBC 55-80 H Ur Squamous Epith Cells 0-4 H Amorphous Sediment Not Reportable Urine Bacteria 3+ H Cardiac Studies: No Data to Display
--- NOTE | 2020-10-11 09:04 | P.OP_ITS ---
Operative Report Date of procedure: October 11, 2020 Pre-op Diagnosis: Pneumoperitoneum of unknown etiology Post-op Diagnosis: Stercoral perforation of the cecum causing pneumoperitoneum and fecal contamination Procedure Done: Diagnostic laparoscopy Open right hemicolectomy with stapled ileocolic [id number] anastomosis Pathology: Ileum, cecum, ascending colon and proximal transverse colon Surgeon: Luis Morales Anesthesia: General Estimated blood loss (mL): 25 IV fluids (mL): 2,200 Urine output (mL): 200 Condition: stable Disposition: PACU Procedure: The patient was taken to the operating room and placed in supine under general anesthesia after IV antibiotic had been administered. A Ann catheter was placed and the abdomen was prepped and draped in a sterile manner. A 2 cm midline supraumbilical incision was made and using open Kellogg technique the peritoneal cavity was entered and an 11 mm port was placed and 15 mm of pneumoperitoneum was created. 10 mm 30? scope was introduced. 5 mm port was placed in the midclavicular line in the left upper quadrant, left lower quadrant as well as in the suprapubic area under direct visualization. The patient was placed in Trendelenburg position and steep tilt to the left placing the small bowel in the left side within the peritoneal cavity and the transverse colon was retracted superiorly. The cecum was retracted laterally and the tenting of the ileocolic pedicle was noted. The peritoneum overlying the pedicle was opened and a window created posterior to the pedicle just late ral to the third portion of the duodenum. Dissection was carried superiorly lateral to the duodenum along the avascular plane. At this point the opening in the cecum with drainage of stool was noted which was the source of the pneumoperitoneum. I therefore decided to convert to a laparotomy to prevent further contamination. The umbilical incision was extended superiorly and inferiorly using 15 blade, subcutaneous tissue, linea alba was divided to enter the peritoneal cavity. The perforation in the cecum was closed with 3-0 Vicryl suture. Using LigaSure the ileocolic pedicle was divided. The avascular plane was dissected laterally towards the right paracolic gutter and superiorly towards the hepatic flexure.The transverse mesocolon was divided using LigaSure and this was continued medially. The right branch of mid colic vessels were skeletonized and divided with LigaSure. The anterior leaflet of the greater omentum was divided near the midpoint of the transverse colon to enter the lesser sac. The greater omentum was divided using LigaSure and the hepatic flexure was taken down. The dissection was carried along the line of Toldt until the ascending colon and down to ileum to completely free it up. The mesentery of the terminal ileum was divided using LigaSure and the mobilized colon and small bowel was exteriorized. Interrupted 4-0 Vicryl suture was placed to approximate the ileum to the transverse colon and enterotomies were created on the transverse colon and small bowel and and 75 mm blue load WILNER stapler was introduced and fired creating a [id number] stapled anastomosis. There was no bleeding noted from the staple line and enterotomies were grasped with Allis clamps and another load of 75 mm blue load WILNER stapler x 2 was fired to resect the specimen distal to the enterotomies. 4-0 Vicryl Lembert sutures were placed on the edges and the intersection of the staple line. The bowel was reintroduced into the peritoneal cavity, with the omentum covering the anastomosis. The peritoneal cavity was irrigated with 3 L of warm saline and the fascia in the midline was closed using running #1 looped PDS. 20cc of saline mixed with 20 cc of Exparel mixed with 20cc of 0.5% Marcaine was infiltrated around the incisions. The skin incisions were closed with guzman and covered with sterile dressings. The patient was extubated and transferred to recovery room with an NG tube and Ann catheter in place.
--- NOTE | 2020-10-11 10:09 | SUR.PHASEI ---
pt recieved to pacu sleepy with oral airwy in place vss iv patent LR TO RTWRIST #18 IV AT 150ML/HR APPROX , ALSO ARTLINE TO RT WRIST, ZEROED WITH CONTINOUS PRESSURES APPROX 10 POINTS HIGHER THAN CUFF PRESSURE TO LT ARM. IV # 20 JELCO PATENT WITH NS AT KVO RATE, ABD WITH MIDLINE DRESSING D/I WITH SMALL 1-2 CM SITE OF LT PINK DRAINAGE MARKED, 3 PORT SITES WITH FELISHA AND EXOFIN D/I WITH LOWER ABD SITE OOZING CLEAR PINK SECRETIONS IN SMALL AMT TO GOWN., BILAT SCDS ON , PT SLEEPS WITH GOOD RESP NOTED 0930 PT AWAKES AND ORAL AIRWAY OUT PT VERBALIZED NO TO QUESTIONS OF PAIN AND NAUSEA AND YES TO COLD, PT GIVEN 3 WARM BLANKETS , ABD SOFT NO FURTHER DRAINAGE NOTED FROM LOWER PORT SITE, PT QUICKLY BACK TO SLEEP VSS 1015 APPROX 500ML OF LR INFUSED , RATE SLOWED TO KVO, SATS 100% BP STABLE APPOX 10 ML CLEAR YELLOW URINE NOTED TO KHAN TUBING, PT SLEEPS IF NOT DISTURBED.
--- NOTE | 2020-10-11 10:11 | P.ANES_ITS ---
Anesthesia Procedures Procedure/Date: 10/11/20 Arterial Line: Time Out Performed: Yes Consent: requested by attending/covering physician, risks and benefits reviewed and patient agrees to proceed Size (Gauge): 20 Technique Used: guide wire technique Post- Procedure: dry sterile dressing placed Patient Tolerated Procedure: well C omplications: none Site: right and radial
--- NOTE | 2020-10-11 10:11 | P.ANESPOST_ITS ---
Inpatient post-anesthesia follow up: Airway intact: Yes Vital signs: Temperature 98.3 F Pulse Rate [Monito r] 119 Pulse Rate 89 Respiratory Rate 17 Blood Pressure [Ri ght Arm] 148/74 Blood Pressure 112/66 Pulse Oximetry 100 Oxygen Delivery Me thod Simple Mask Oxygen Flow Rate 8 Fraction of Inspir ed Oxygen Hydration adequate: Yes Nausea and vomiting: No Pain level: 3 [place] tional Comments: Sedated, stable no pressors.
--- NOTE | 2020-10-11 10:11 | ANES.PROC ---
Anesthesia Procedures Procedure/Date: 10/11/20 Arterial Line: Time Out Performed: Yes Consent: requested by attending/covering physician, risks and benefits reviewed and patient agrees to proceed Size (Gauge): 20 Technique Used: guide wire technique Post-Procedure: dry sterile dressing placed Patient Tolerated Procedure: well Complications: none Site: right and radial
--- NOTE | 2020-10-11 10:39 | PM.CONSULT ---
Providers/Reason For Consult Consulting Physican/Specialty*: ki Pulido Reason for Consult*: Medical management Primary Care Provider: Emily Cabral DO History of Present Illness History of Present Illness Munira Crawford is a 80 year old female who presented from a local group home where she resides. According to nursing staff there they have been having issues with anemia lately and she is required outpatient transfusion. Work-up was in progress of this. She had been having blood in her stool for the last week. She had nausea for the last 3 days and had one episode of emesis. She has had decreased p.o. intake. She has not had any fever. She had recently been seen by gynecology for prolapsed uterus, and was not deemed to be a surgical candidate. Further history is difficult to obtain from the patient as she is significantly sleepy postoperative. A review of systems cannot be obtained secondary to this as well. Review of Systems General: Reports: ROS unobtainable due to mental status (Significant lethargy following anesthesia for surgery) Meds/Allergies Home Medications and Allergies Home Medications Medication Instructions Recorded Confirmed Last Taken Type clindamycin HCl 300 mg capsule 300 mg PO TID 09/20/20 09/27/20 Unknown History Miralax 1 packet PO DAILY 09/27/20 09/27/20 Unknown History bisacodyl 5 mg NC DAILY 09/27/20 09/27/20 Unknown History magnesium hydroxide [Milk of 5 ml PO DAILY PRN 09/27/20 09/27/20 Unknown History Magnesia] pollens extract [Prostat] 1 tab PO BID 09/27/20 09/27/20 Unknown History sennosides-docusate sodium 1 tab-cap PO DAILY PRN 09/27/20 09/27/20 Unknown History [Senna-S] Allergies Allergy/AdvReac Type Severity Reaction Status Date / Time No Known Allergies Allergy Verified 10/11/20 04:18 PFSH Acute PFSH: Medical History (Updated 10/11/20 @ 10:53 by Reji Jorgensen MD) Anemia Heart murmur Pressure ulcer of coccygeal region, stage 3 Shingles years ago Uterovaginal prolapse, incomplete Surgical History S/P tonsillectomy and adenoidectomy Family History Mother Stomach cancer Father Stroke Social History Smoking and tobacco status: former smoker Quit status (tobacco): has quit using tobacco Year quit tobacco: years ago Alcohol intake: never Vitals/I&O/Wt Last Vital Signs Temp 98.3 F 10/11/20 09:20 Pulse 92 10/11/20 10:20 Resp 16 10/11/20 10:20 BP 127/66 10/11/20 10:20 Pulse Ox 100 10/11/20 10:20 10/10/20 10/11/20 10/11/20 22:59 06:59 14:59 Intake Total 700 / 700 Output Total 425 / 425 Balance 275 / 275 Weight last 48 hrs Weight 85.275 kg Physical Exam Narrative: EXAM NARRATIVE: General exam is a sleepy postoperative white female, who is able to answer a few limited questions. She has mild discomfort which is currently being addressed. HEENT: Atraumatic normocephalic pupils equally round and reactive. Oropharynx clear. Neck is supple no lymphadenopathy or thyromegaly Cardiovascular regular rate and rhythm with a 3/6 systolic murmur heard left best at the left lower sternal border Lungs clear with diminished breath sounds bilaterally Abdomen is postoperative. No bowel sounds are heard. Surgical dressing is intact and dry demonstrates Ann Extremities trace edema bilaterally. Cap refill brisk. No cyanosis or clubbing. Skin no rash Neuro no obvious focal deficits Urinary Catheter Management^: Ann: Cath Placed During This Visit: yes Urinary Catheter Date of Insertion: 10/11/20 Urinary Catheter Time of Insertion: 07:20 Data Other Data: Other data: Initial abdomen pelvis CT demonstrated pneumoperitoneum, dilated loops of small bowel with stool, right adrenal nodule, small ascites and moderate right and left pleural effusions EKG demonstrated sinus tachycardia, right bundle branch block, left axis deviation, no acute changes Calcium 8.2 Albumin 2.6 LFTs largely normal Urinalysis demonstrated 55-80 whites 0-4 reds A&P Assessment and plan (1) Sepsis: Sepsis delineated by hypotension, tachycardia, fever on admission with site being perforated bowel Zosyn IV Blood cultures does not appear to have been done on admission. Will order. Lactate was high Fluids currently on 100 cc an hour and has not hypotensive currently we will continue with this amount. She stands significant risk for fluid overload as she already has a moderate pleural effusion on the right and mild on the left. Status: Acute (2) Pneumoperitoneum of unknown etiology: Postoperative exploratory lap and right hemicolectomy Status: Acute (3) UTI (urinary tract infection): IV antibiotics consisting of Zosyn Urine culture Status: Acute (4) Hypokalemia: Supplement Check magnesium level Status: Acute (5) Heart murmur: Check echocardiogram Status: Acute Additional A&P Information Bilateral pleural effusions. I suspect these are chronic and could be related to cardiac function. Check echocardiogram. Hypotension. Now resolved. Continue fluids. Pepcid for GI prophylaxis Lovenox for DVT prophylaxis Discussed with family her CODE STATUS. She was allow natural at the nursing facility and have been contemplating no procedures. Will change back to allow natural but family and patient would like discussion if her health condition worsens of possible supportive care if this could give a meaningful outcome. Consult Attestations Medical Necessity Statement: 2 midnight stay secondary to sepsis with perforated viscus Time Spent in Patient Care: Greater than 35 minutes Procedures Arterial Line Size (Gauge): 20 Coding Level of Care Code Acute Division Director for Chg Fwd Diagnoses Sepsis A41.9 Pneumoperitoneum of unknown etiology K66.8 UTI (urinary tract infection) N39.0 Hypokalemia E87.6 Heart murmur R01.1
[2020-10-11] MEDS: morphine 4 mg/mL SDV 1 mL 2 MG IVP (10:45)
[2020-10-11] MEDS: FUROsemide 10 mg/mL SDV 2mL IVP (11:11)
--- NOTE | 2020-10-11 13:14 | USCV_ITS ---
Munira Crawford Age: 80 Gender: F : 1940 Exam Date: 10/11/2020 13:52 Ordering Phys: Reji Jorgensen MD Technologist: Tiffanie Christianson [place] [facility] [place]ication: MURMUR BP: 105 / 62 HR: 95 Rhythm: Sinus Technical Quality: Adequate MEASUREMENTS (Male / Female) Normal Values 2D ECHO LV Diastolic Diameter PLAX 3.8 cm 4.2 - 5.9 / 3.9 - 5.3 cm LV Systolic Diameter PLAX 3.3 cm LV Chamber Size 3.3 cm IVS Diastolic Thickness 1.5 cm 0.6 - 1.0 / 0.6 - 0.9 cm IVS Systolic Thickness 1.5 cm LVPW Diastolic Thickness 1.4 cm 0.6 - 1.0 / 0.6 - 0.9 cm LVPW Systolic Thickness 1.9 cm RV Chamber Size 2.9 cm LVOT Diameter 2.1 cm LV Ejection Fraction 2D Teich 28.0 % LV Ejection Fraction MOD 2C 68.6 % LV Ejection Fraction 2C AL 70.1 % LA Diameter 3.8 cm LA Width 2.9 cm LA Height 4.1 cm RA Width 2.9 cm RA Height 3.2 cm Aorta at Sinotubular Diameter 2.8 cm M-MODE LV Diastolic Diameter MM 4.9 cm 4.2 - 5.9 / 3.9 - 5.3 cm LV Systolic Diameter MM 3.6 cm LV Ejection Fraction MM Teich 50.5 % IVS Diastolic Thickness MM 1.0 cm 0.6 - 1.0 / 0.6 - 0.9 cm IVS Systolic Thickness MM 1.7 cm LVPW Diastolic Thickness MM 1.3 cm 0.6 - 1.0 / 0.6 - 0.9 cm LVPW Systolic Thickness MM 1.8 cm RV Diastolic Diameter MM 0.8 cm Aortic Annulus Diameter 3.5 cm LA Ao Ratio MM 1.2 MV E Point Septal Separation 1.0 cm DOPPLER AV Peak Velocity 281.3 cm/s LVOT Peak Velocity 119.0 cm/s AV Area Cont Eq vti 1.3 cm squared AV Area Cont Eq pk 1.4 cm squared MV Area PHT 8.1 cm squared Mitral E to A Ratio 0.7 MV E' Velocity 55.5 cm/s Mitral E to MV E' Ratio 11.8 Mitral E to LV E' Lateral Ratio 10.6 Mitral E to LV E' Septal Ratio 13.6 TR Peak Velocity 192.9 cm/s TR Peak Gradient 14.9 mmHg TR Mean Velocity 154.7 cm/s TR Mean Gradient 11.0 mmHg TR Velocity Time Integral 48.6 cm TV Peak E Velocity 65.0 cm/s Right Atrial Pressure 3.0 mmHg Pulmonary Artery Systolic Pressu 17.9 mmHg PV Peak Velocity 84.0 cm/s RV Acceleration Time 0.1 s RV Ejection Time 0.3 s RV AcT/ET 0.4 FINDINGS Left Ventricle Normal left ventricular size and systolic function, EF 69 %. Moderate left ventricular hypertrophy. No regional wall motion abnormalities. Grade I/IV diastolic dysfunction (abnormal relaxation filling pattern), normal to mildly elevated filling pressures. Right Ventricle The right ventricle is normal in size and function. Right Atrium The right atrium is normal in size. Left Atrium Mildly increased left atrial size. Mitral Valve Trace mitral valve regurgitation. Aortic Valve Thickened aortic valve with moderate calcification. Moderate aortic valve stenosis with a valve area of 1.3 cm squared-peak velocity of 2.8 m/s Tricuspid Valve No gross abnormalities were noted Pulmonic Valve Mild pulmonary valve regurgitation. Pericardium Normal pericardium without effusion. Aorta Normal aortic annulus size. CONCLUSIONS Normal left ventricular size and systolic function, EF 69 %. Moderate left ventricular hypertrophy. No regional wall motion abnormalities. Grade I/IV diastolic dysfunction (abnormal relaxation filling pattern), normal to mildly elevated filling pressures. Moderate aortic valve stenosis with a valve area of 1.3 cm squared-peak velocity of 2.8 m/s. Mildly increased left atrial size. Mild pulmonary valve regurgitation. Trace mitral valve regurgitation. There is no pericardial effusion. There are no intracardiac masses. No previous study is available for comparison. Dr Reza Matta MD [facility] (Electronically Signed) Final Date: 12 October 2020 18:03 S
[2020-10-11 14:04] LABS: Magnesium 1.8 mg/dL (1.7-2.3); Thyroid Stimulating Hormone 4.55 uIU/mL (0.27-4.20)
[2020-10-11] MEDS: lidocaine 1% 5 ML in potassium chloride premix 100 ML 50 ML IV (15:07)
[2020-10-11] MEDS: D5-NS 0.45% + KCL 20 mEq 20 MEQ/1,000 ML BAG 100 MEQ IV (15:07)
[2020-10-11] MEDS: famotidine 20 mg/2 mL INJ IVP (15:09)
[2020-10-11] MEDS: sodium chloride 0.9% 500 ML 999 ML IV ×2 (18:36→22:12)
--- NOTE | 2020-10-11 21:51 | PC.NURSE ---
Dr. Morales made aware of patient's minimal urine output. orders received. increased IVF, bolus ordered.
[2020-10-11] MEDS: D5-NS 0.45% + KCL 20 mEq 20 MEQ/1,000 ML BAG 125 MEQ IV (22:14)
[2020-10-12] VITALS (19 sets, daily range): BP systolic 99–121; BP diastolic 59–78; PULSE 91–127; RESP 12–20; TEMP 36.4–37.2; O2SAT 76–99
[2020-10-12] MEDS: morphine 4 mg/mL SDV 1 mL 3 MG IVP ×2 (00:19→21:09)
[2020-10-12] MEDS: famotidine 20 mg/2 mL INJ IVP ×2 (02:20→14:35)
[2020-10-12] MEDS: sodium chloride 0.9% 500 ML 999 ML IV (02:55)
[2020-10-12 04:42] LABS: Basophils # 0.1 10^3/uL (0.0-0.1); Basophils % 0.5 %; Hematocrit 34.8 % (37.0-47.0); Hemoglobin 10.8 g/dL (11.5-15.3); Lymphocytes # 1.2 10^3/uL (0.8-4.8); Lymphocytes % 10.4 %; Mean Corpuscular Hemoglobin 30.1 pg (28.0-34.0); Mean Corpuscular Volume 96.9 fL (81-99); Mean Platelet Volume 9.5 fL (7.4-10.4); Monocytes # 0.5 10^3/uL (0.2-0.9); Monocytes % 4.4 %; Neutrophils # 9.89 10^3/uL (1.8-7.7); Nucleated Red Blood Cells % 0 %; Platelet Count 334 10^3/cmm (130-400); Red Blood Count 3.59 10^6/uL (4.1-5.3); Red Cell Distribution Width 14.7 % (12.1-15.1); White Blood Count 11.8 10^3/uL (4.0-10.0)
[2020-10-12 05:12] LABS: Anion Gap 13.7 (5-19); Blood Urea Nitrogen 22 mg/dL (8-23); Calcium 6.8 mg/dL (8.5-10.5); Carbon Dioxide 24 mmol/L (22-29); Chloride 104 mmol/L (98-107); Glucose 152 mg/dL (65-115); Osmolality Calculated 292 mOsm/kg (285-295); Potassium 3.7 mmol/L (3.5-5.1); Sodium 138 mmol/L (136-145)
[2020-10-12] MEDS: piperacillin-tazobactam 3.375 GM in sodium chloride 0.9% (plus) 50 ML IV ×3 (06:20→21:09)
[2020-10-12] MEDS: enoxaparin 40 mg/0.4 mL Syringe SUBCUT (06:21)
[2020-10-12] MEDS: D5-NS 0.45% + KCL 20 mEq 20 MEQ/1,000 ML BAG 125 MEQ IV ×3 (06:23→22:02)
--- NOTE | 2020-10-12 09:55 | PC.CHAP ---
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 [] Patient/Family/Request visit [] Outpatient visit [] Follow-up visit [] Physician referral [] Code/Alert [XX] Routine visit [] Staff referral [] Actively dying [] Patient sleeping [] Family support [] [] Out of room [] Palliative care [] [] Receiving care in room [] Pre-surgical visit [] Trauma [] Long length of stay [XX] ICU visit [] Other: Relational/Emotional Strength [XX] Patient feels connected with others/family/visitors/staff [] Distress [] Loneliness/isolation [] Abandonment Spirituality of Patient [XX] Person of Sapphire [] Attends Roman Catholic of their [place] [XX] Believes in Prayer [] Reads Bible or Yarsani materials [] There are Spiritual issues to be addressed Cable Testers Helper Interventions [XX] Prayer [XX] Active listening [XX] Non-anxious presence [] Spiritual/emotional support [] Crisis/trauma care [] Spiritual counseling [] Bereavement support [] Provided bereavement packet [] Provided Bible/devotional materials [] Provided toy/stuffed animal, coloring book to patient or family member [] Provided Communion [] Anointing/Slater [] Salvation [] Completed spiritual assessment [] Other: Impact on Illness or Injury [] Angry [] Fearful [] Anxious [] Often cries [] Exhaustion [] Unable to work [] Unable to attend tenriism [] Unable to walk/stand [] Unable to read [] Unable to drive [] Unable to eat/drink [] Unable to sleep [] Unable to be with family [] Patient intubated [] Other: Summary: Pt had surgery a couple of days ago. She seems to be doing very well adn is connected with her son who is staying in touch. Joined with her in prayer. Time spent with patient: 6 mins
--- NOTE | 2020-10-12 10:06 | XRR_ITS ---
PROCEDURE INFORMATION: Exam: XR Chest, 1 View Exam date and time: 10/12/2020 10:07 AM Age: 80 years old Clinical indication: Pleural effusion. Influenza. TECHNIQUE: Imaging protocol: XR of the chest Views: 1 view. COMPARISON: No relevant prior studies available. FINDINGS: Tubes, catheters and devices: Nasogastric tube projects into the abdomen. Its tip is not included on the current study. Lungs: There are bibasilar opacities and small bilateral pleural effusions, right greater than left. Pleural spaces: No pneumothorax. Heart/Mediastinum: Borderline cardiomegaly. No gross evidence of pneumomediastinum. Bones/joints: No gross fracture. XR/XR chest 1V portable [id number] IMPRESSION: 1. There are bibasilar opacities and small bilateral pleural effusions, right greater than left. 2. Borderline cardiomegaly.
--- NOTE | 2020-10-12 11:28 | P.PN_ITS ---
Subjective Subjective: Interval history: Patient had multiple loose bowel movements states abdominal pain is well controlled Vitals/I&O/Wt Last Vital Signs Temp 98.1 F 10/12/20 07:00 Pulse 93 10/12/20 09:00 Resp 12 10/12/20 09:00 BP 115/73 10/12/20 09:00 Pulse Ox 98 10/12/20 09:00 10/11/20 10/12/20 10/12/20 22:59 06:59 14:59 Intake Total 1370.000 / 4170.000 1050 / 4170.000 Output Total 60 / 535 50 / 535 Balance 1310.000 / 3635.000 1000 / 3635.000 Weight last 48 hrs Weight 188 lb Physical Exam Narrative: EXAM NARRATIVE: Abdomen: Soft, generalized tenderness, nondistended, incision clean dry and intact, dressings dry and intact Urinary Catheter Management^: Ann: Cath Placed During This Visit: yes Reason for Continuing Indwelling Catheter: Accurate Measurement of Urinary Output in Critically Ill Patients Urinary Catheter Date of Insertion: 10/11/20 Urinary Catheter Time of Insertion: 07:20 Data : 10/12/20 03:34 10/12/20 03:34 Micro: Microbiology 10/11/20 15:04 Blood Culture - Preliminary Blood SPECIMEN COLLECTED 10/11/20 14:58 Blood Culture - Preliminary Blood SPECIMEN COLLECTED A&P Assessment and plan (1) S/P right hemicolectomy: 80-year-old female status post right hemicolectomy for cecal stercoral perforation with postop ileus Continue IV Zosyn as there was significant amount of fecal contamination of the peritoneal cavity Clamp NG tube Start clear liquid diet Ambulate with physical therapy Lactulose 15 cc p.o. twice daily for bowel regimen Morphine and Cunningham for pain control Pepcid for GI prophylaxis SCD Lovenox for DVT prophylaxis Incentive spirometry, wean O2 to room air If patient remains stable today she could be transferred to the floor this evening Status: Acute Attestations Medical Necessity Statement*: Status post right hemicolectomy issues on that side Procedures Arterial Line Size (Gauge): 20 Coding Level of Care Code Acute Openstack Developer for Sarag Fwcaridad Diagnoses S/P right hemicolectomy Z90.49
--- NOTE | 2020-10-12 11:45 | P.PN_ITS ---
Subjective Subjective: Interval history: Status post right hemicolectomy for cecal perforation on October 11, 2020. Had few episodes of loose bowel movements today. Able to pass flatus. Getting trial of clear liquid diet today. T-max 100.7 this morning. Oxygen flow rate at 2 L/min, no complains of chest pain dyspnea palpitations. Abdominal pain is well controlled. Medications: Reviewed: Yes Vitals/I&O/Wt Last Vital Signs Temp 98.1 F 10/12/20 07:00 Pulse 93 10/12/20 11:28 Resp 12 10/12/20 09:00 BP 115/73 10/12/20 09:00 Pulse Ox 98 10/12/20 11:28 10/11/20 10/12/20 10/12/20 22:59 06:59 14:59 Intake Total 1370.000 / 3120.000 1050 / 4170.000 Output Total 60 / 485 50 / 535 Balance 1310.000 / 2635.000 1000 / 3635.000 Weight last 48 hrs Weight 85.275 kg Physical Exam Narrative: EXAM NARRATIVE: GEN: Awake, alert and oriented, no acute distress HEENT NGT in place CVS: S1S2 N RS: CTA B/L anteriorly Abd: Soft, nt/nd , bs+ LUMBER MOVER: no focal neuro deficits Urinary Catheter Management^: Ann: Cath Placed During This Visit: yes Reason for Continuing Indwelling Catheter: Accurate Measurement of Urinary Output in Critically Ill Patients Urinary Catheter Date of Insertion: 10/11/20 Urinary Catheter Time of Insertion: 07:20 Data : 10/12/20 03:34 10/12/20 03:34 Micro: Microbiology 10/11/20 15:04 Blood Culture - Preliminary Blood SPECIMEN COLLECTED 10/11/20 14:58 Blood Culture - Preliminary Blood SPECIMEN COLLECTED A&P Assessment and plan (1) Sepsis: Sepsis delineated by hypotension, tachycardia, fever on admission with site being perforated bowel Continue Zosyn IV Blood cultures thus far without growth Currently on D5 half NS at 125 cc/h Starting trial of clear liquid diet today Status: Acute (2) Pneumoperitoneum of unknown etiology: Postoperative exploratory lap and right hemicolectomy Status: Acute (3) UTI (urinary tract infection): IV antibiotics consisting of Zosyn Urine culture pending Status: Acute (4) Hypokalemia: Resolved Status: Acute (5) Heart murmur: echocardiogram taken, results remain pending Status: Acute Additional A&P Information Bilateral pleural effusions. I suspect these are chronic and could be related t o cardiac function. Hypotension. Now resolved. Continue fluids. Pepcid for GI prophylaxis Lovenox for DVT prophylaxis Attestations Medical Necessity Statement*: Please see admitting note, sepsis, need for IV antibiotics, monitor bowel function postoperatively Procedures Arterial Line Size (Gauge): 20 Coding Level of Care Code Acute Value Advisor for [facility] Fwd Diagnoses Sepsis A41.9 Pneumoperitoneum of unknown etiology K66.8 UTI (urinary tract infection) N39.0 Hypokalemia E87.6 Heart murmur R01.1
[2020-10-12] MEDS: lactulose oral liq 20 gm/30 mL UDC 10 GM PO (14:35)
[2020-10-13] VITALS (19 sets, daily range): BP systolic 99–156; BP diastolic 57–91; PULSE 95–116; RESP 11–16; TEMP 36.6–37.2; O2SAT 91–99
[2020-10-13] MEDS: lactulose oral liq 20 gm/30 mL UDC 10 GM PO (00:32)
--- NOTE | 2020-10-13 00:33 | PC.NURSE ---
late lactulose administration due to patient care being performed
[2020-10-13] MEDS: famotidine 20 mg/2 mL INJ IVP ×2 (02:30→14:55)
[2020-10-13 04:39] LABS: Basophils % 0.2 %; Eosinophils % 0.2 %; Hemoglobin 9.7 g/dL (11.5-15.3); Lymphocytes % 7.8 %; Mean Corpuscular HGB Conc 30.3 g/dL (30.0-36.0); Mean Corpuscular Hemoglobin 30.3 pg (28.0-34.0); Mean Platelet Volume 9.3 fL (7.4-10.4); Monocytes # 0.9 10^3/uL (0.2-0.9); Neutrophils # 10.51 10^3/uL (1.8-7.7); Neutrophils % 84.1 %; Nucleated Red Blood Cells % 0 %; Platelet Count 271 10^3/cmm (130-400); Red Cell Distribution Width 14.7 % (12.1-15.1); White Blood Count 12.5 10^3/uL (4.0-10.0)
[2020-10-13 05:09] LABS: Anion Gap 11.7 (5-19); Blood Urea Nitrogen 21 mg/dL (8-23); Calcium 6.9 mg/dL (8.5-10.5); Carbon Dioxide 22 mmol/L (22-29); Chloride 103 mmol/L (98-107); Glucose 129 mg/dL (65-115); Osmolality Calculated 281 mOsm/kg (285-295); Potassium 3.7 mmol/L (3.5-5.1); Sodium 133 mmol/L (136-145)
[2020-10-13] MEDS: piperacillin-tazobactam 3.375 GM in sodium chloride 0.9% (plus) 50 ML IV ×3 (06:04→21:35)
[2020-10-13] MEDS: enoxaparin 40 mg/0.4 mL Syringe SUBCUT (06:04)
[2020-10-13] MEDS: D5-NS 0.45% + KCL 20 mEq 20 MEQ/1,000 ML BAG 125 MEQ IV (06:05)
[2020-10-13] MEDS: HYDROcodone-acetaminophen 5-325 mg Tablet 1 TAB PO ×2 (09:50→19:07)
--- NOTE | 2020-10-13 10:05 | PC.NURSE ---
Dr. Morales at bedside NG tube removed o2 removed and dressing from abd removed
--- NOTE | 2020-10-13 12:26 | PM.PN ---
Subjective Subjective: Interval history: Afebrile, hemodynamically stable, sinus tachycardia up to 106 bpm, hemoglobin stable at 9.7, urine output 300 cc Medications: Reviewed: Yes Vitals/I&O/Wt Last Vital Signs Temp 98.2 F 10/13/20 04:00 Pulse 106 H 10/13/20 06:00 Resp 15 10/13/20 06:00 BP 126/70 10/13/20 06:00 Pulse Ox 96 10/13/20 06:00 10/12/20 10/13/20 10/13/20 22:59 06:59 14:59 Intake Total 979.167 / 2229.167 1050 / 3279.167 170 / 170 Output Total 220 / 220 150 / 370 Balance 759.167 / 2009.167 900 / 2909.167 170 / 170 Physical Exam Narrative: EXAM NARRATIVE: GEN: Awake, alert and oriented, no acute distress CVS: S1S2 N RS: CTA B/L Abd: Soft, nt/nd , bs+ ELEMENTARY PRINCIPAL: no focal neuro deficits Urinary Catheter Management^: Ann: Cath Placed During This Visit: yes Reason for Continuing Indwelling Catheter: Accurate Measurement of Urinary Output in Critically Ill Patients Urinary Catheter Date of Insertion: 10/11/20 Urinary Catheter Time of Insertion: 07:20 Data : 10/13/20 04:11 10/13/20 04:11 Micro: Microbiology 10/11/20 04:35 Urine Culture - Final Urine Catheterized Klebsiella pneumoniae 10/11/20 15:04 Blood Culture - Preliminary Blood NEGATIVE TO DATE 10/11/20 14:58 Blood Culture - Preliminary Blood NEGATIVE TO DATE Other data: Echocardiogram: CONCLUSIONS: Normal left ventricular size and systolic function, EF 69 %. Moderate left ventricular hypertrophy. No regional wall motion abnormalities. Grade I/IV diastolic dysfunction (abnormal relaxation filling pattern), normal to mildly elevated filling pressures. Moderate aortic valve stenosis with a valve area of 1.3 cm squared-peak velocity of 2.8 m/s. Mildly increased left atrial size. Mild pulmonary valve regurgitation. Trace mitral valve regurgitation. There is no pericardial effusion. There are no intracardiac masses. No previous study is available for comparison. A&P Assessment and plan (1) Sepsis: Sepsis delineated by hypotension, tachycardia, fever on admission with site being perforated bowel, currently resolved Continue Zosyn IV Blood cultures thus far without growth Currently on D5 half NS at 125 cc/h urine output 350 cc, cr stable at 1.1 Tolerating clear liquid diet for now Status: Acute (2) Pneumoperitoneum of unknown etiology: Postoperative exploratory lap and right hemicolectomy Status: Acute (3) UTI (urinary tract infection): IV antibiotics consisting of Zosyn Urine culture Klebisella pneumonaie, appropriately covered currently Status: Acute (4) Hypokalemia: Resolved Status: Acute (5) Heart murmur: Echo with LVEF 69%, moderate LVH, ro RWMA gr 1 diastolic dysfunction, moderate AV stenosis, CHEMA 1.3 cm2 carefully monitor while on IVF no current signs of heart failure Status: Acute Additional A&P Information Bilateral pleural effusions. Chronic. Currently clinically euvolemic, continue IVF with close monitoring Hypotension. Now resolved. Continue fluids. Pepcid for GI prophylaxis Lovenox for DVT prophylaxis Attestations Medical Necessity Statement*: per admitting note Procedures Arterial Line Size (Gauge): 20 Coding Level of Care Code Acute Billing And Insurance Coordinator for g Fwd Diagnoses Sepsis A41.9 Pneumoperitoneum of unknown etiology K66.8 UTI (urinary tract infection) N39.0 Hypokalemia E87.6 Heart murmur R01.1
--- NOTE | 2020-10-13 12:51 | PC.CHAP ---
Pastoral Care Encounter/Spiritual Assessment Type of Contact [] Declined transportation maintenance operator visit [] Patient/Family/Request visit [] Outpatient visit [] Follow-up visit [] Physician referral [] Code/Alert [] Routine visit [X] Staff referral [] Actively dying [] Patient sleeping [] Family support [] [] Out of room [] Palliative care [] [] Receiving care in room [] Pre-surgical visit [] Trauma [] Long length of stay [] ICU visit [] Other: Relational/Emotional Strength [X] Patient feels connected with others/family/visitors/staff [] Distress [] Loneliness/isolation [] Abandonment Spirituality of Patient [X] Person of Sapphire [] Attends Baptism of their [place] [] Believes in Prayer [] Reads Bible or Caodaism materials [] There are Spiritual issues to be addressed Siebel Crm Developer Interventions [X] Prayer [X] Active listening [X] Non-anxious presence [X] Spiritual/emotional support [] Crisis/trauma care [] Spiritual counseling [] Bereavement support [] Provided bereavement packet [] Provided Bible/devotional materials [] Provided toy/stuffed animal, coloring book to patient or family member [] Provided Communion [] Anointing/[place] [] Salvation [X] Completed spiritual assessment [] Other: Impact on Illness or Injury [] Angry [] Fearful [] Anxious [] Often cries [] Exhaustion [] Unable to work [] Unable to attend catholic [] Unable to walk/stand [] Unable to read [] Unable to drive [] Unable to eat/drink [] Unable to sleep [] Unable to be with family [] Patient intubated [] Other: Summary Staff suggested PT might desire a visit. Siebel Crm Developer met with her and she seemed to have difficulty following the conversation. Pt stated she had just woke up. When speaking about spiritual issues she confirm with a verbal Amen . Prayer was offered and accepted. Time spent with patient 5min
--- NOTE | 2020-10-13 14:02 | P.PN_ITS ---
Subjective Subjective: Interval history: Patient had multiple bowel movements yesterday, no nausea vomiting, pain is controlled Vitals/I&O/Wt Last Vital Signs Temp 97.8 F 10/14/20 10:00 Pulse 131 H 10/14/20 13:00 Resp 23 H 10/14/20 13:00 BP 140/81 10/14/20 13:00 Pulse Ox 98 10/14/20 12:00 10/13/20 10/14/20 10/14/20 22:59 06:59 14:59 Intake Total 363.75 / 2415.833 1050 / 2415.833 Output Total 275 / 525 250 / 525 300 / 300 Balance 88.75 / 1890.833 800 / 1890.833 -300 / -300 Physical Exam Narrative: EXAM NARRATIVE: Abdomen: Soft Urinary Catheter Management^: Ann: Cath Placed During This Visit: yes Reason for Continuing Indwelling Catheter: Accurate Measurement of Urinary Output in Critically Ill Patients Urinary Catheter Date of Insertion: 10/11/20 Urinary Catheter Time of Insertion: 07:20 Data : 10/14/20 04:03 10/14/20 04:03 Micro: Microbiology 10/11/20 04:35 Urine Culture - Final Urine Catheterized Klebsiella pneumoniae A&P Assessment and plan (1) S/P right hemicolectomy: 80-year-old female status post right hemicolectomy for cecal stercoral perforation with postop ileus Continue IV Zosyn as there was significant amount of fecal contamination of the peritoneal cavity DC NG tube Advance to full liquid diet Ambulate with physical therapy Lactulose 15 cc p.o. twice daily for bowel regimen Morphine and [place] for pain control Pepcid for GI prophylaxis SCD Lovenox for DVT prophylaxis Incentive spirometry, wean O2 to room air If patient remains stable today she could be transferred to the floor tomorrow Status: Acute Attestations Medical Necessity Statement*: Status post right hemicolectomy for cecal perforation doing well Procedures Arterial Line Size (Gauge): 20 Coding Level of Care Code Acute Staff Development Coordinator Rn for [facility] Fwd Diagnoses S/P right hemicolectomy Z90.49
[2020-10-13] MEDS: D5-NS 0.45% + KCL 20 mEq 20 MEQ/1,000 ML BAG 75 MEQ IV (15:05)
--- NOTE | 2020-10-13 17:19 | PC.NURSE ---
several loose large BM this shift patient unable to determine or tell nursing staff when she needs to go or has gone, patient finally was able at this time to tell nursing she had gone and this nurse and PT helped her get to [facility] where patient was unable to go anymore. Patient tolerated well
--- NOTE | 2020-10-13 23:31 | PC.NURSE ---
Confusion Pt woke up confused. Had pulled off all monitoring leads and pulled out IV. Pt found incontinent of bowel. Pt cleansed and turned to right side. 20 g IV restarted to left FA X [address] Mcguire notified of chronic stage 3 pressure ulcer needing orders for wound care management. No new orders received at this time.
[2020-10-14] VITALS (25 sets, daily range): BP systolic 99–144; BP diastolic 55–90; PULSE 90–131; RESP 11–25; TEMP 36.4–37.1; O2SAT 91–99
[2020-10-14] MEDS: lactulose oral liq 20 gm/30 mL UDC 10 GM PO ×2 (00:26→23:40)
[2020-10-14] MEDS: famotidine 20 mg/2 mL INJ IVP ×2 (02:22→15:51)
[2020-10-14] MEDS: D5-NS 0.45% + KCL 20 mEq 20 MEQ/1,000 ML BAG 75 MEQ IV ×2 (04:25→19:24)
[2020-10-14 04:38] LABS: Basophils % 0.3 %; Eosinophils # 0.1 10^3/uL (0.0-0.8); Eosinophils % 0.6 %; Hematocrit 31.7 % (37.0-47.0); Hemoglobin 9.6 g/dL (11.5-15.3); Lymphocytes # 0.9 10^3/uL (0.8-4.8); Lymphocytes % 7.8 %; Mean Corpuscular HGB Conc 30.3 g/dL (30.0-36.0); Mean Corpuscular Hemoglobin 30.1 pg (28.0-34.0); Mean Corpuscular Volume 99.4 fL (81-99); Mean Platelet Volume 9.5 fL (7.4-10.4); Monocytes # 0.7 10^3/uL (0.2-0.9); Neutrophils # 9.15 10^3/uL (1.8-7.7); Neutrophils % 84.2 %; Nucleated Red Blood Cells % 0 %; Platelet Count 222 10^3/cmm (130-400); Red Blood Count 3.19 10^6/uL (4.1-5.3); Red Cell Distribution Width 14.5 % (12.1-15.1); White Blood Count 10.9 10^3/uL (4.0-10.0)
[2020-10-14 05:08] LABS: Anion Gap 11.2 (5-19); Blood Urea Nitrogen 19 mg/dL (8-23); Calcium 7.2 mg/dL (8.5-10.5); Carbon Dioxide 23 mmol/L (22-29); Chloride 108 mmol/L (98-107); Glucose 103 mg/dL (65-115); Osmolality Calculated 289 mOsm/kg (285-295); Potassium 4.2 mmol/L (3.5-5.1); Sodium 138 mmol/L (136-145)
[2020-10-14] MEDS: enoxaparin 40 mg/0.4 mL Syringe SUBCUT (05:25)
[2020-10-14] MEDS: piperacillin-tazobactam 3.375 GM in sodium chloride 0.9% (plus) 50 ML IV ×3 (05:25→21:37)
--- NOTE | 2020-10-14 06:25 | PC.NURSE ---
Dressing Change Received verbal orders for dressing change on stage 3 chronic sacral ulcer. Packed with moistened saline gauze and applied optifoam. While turning patient, light brown fluid oozing from left upper puncture site which is new finding this shift.
--- NOTE | 2020-10-14 08:00 | PC.SOCIAL ---
Pg 2 IMM Explained to pt Pg 2 IMM. No questions voiced. Provided pt a copy. Signed, dated, & timed a copy & placed in chart.
--- NOTE | 2020-10-14 09:35 | PC.CHAP ---
Pastoral Care Encounter/Spiritual Assessment Type of Contact [] Declined fashion supervisor visit [] Patient/Family/Request visit [] Outpatient visit [] Follow-up visit [] Physician referral [] Code/Alert [x] Routine visit [] Staff referral [] Actively dying [] Patient sleeping [] Family support [] [] Out of room [] Palliative care [] [] Receiving care in room [] Pre-surgical visit [] Trauma [] Long length of stay [x] ICU visit [] Other: Relational/Emotional Strength [] Patient feels connected with others/family/visitors/staff [] Distress [] Loneliness/isolation [] Abandonment Spirituality of Patient [] Person of Sapphire [] Attends Holiness of their [place] [] Believes in Prayer [] Reads Bible or Islam materials [] There are Spiritual issues to be addressed Carton Stamper Interventions [x] Prayer [] Active listening [] Non-anxious presence [] Spiritual/emotional support [] Crisis/trauma care [] Spiritual counseling [] Bereavement support [] Provided bereavement packet [] Provided Bible/devotional materials [] Provided toy/stuffed animal, coloring book to patient or family member [] Provided Communion [] Anointing/[place] [] Salvation [x] Completed spiritual assessment [] Other: Impact on Illness or Injury [] Angry [] Fearful [] Anxious [] Often cries [] Exhaustion [] Unable to work [] Unable to attend voodoo [] Unable to walk/stand [] Unable to read [] Unable to drive [] Unable to eat/drink [] Unable to sleep [] Unable to be with family [] Patient intubated [] Other: Summary patient resting better... Time spent with patient
[2020-10-14] MEDS: HYDROcodone-acetaminophen 5-325 mg Tablet 1 TAB PO (09:41)
--- NOTE | 2020-10-14 11:47 | P.PN_ITS ---
Subjective Subjective: Interval history: Patient was seen and examined in the morning.She was complaining of mild abdominal pain at the incision site. She was found to be in afib/Aflutter with RVR today. Her other vitals and labs have been reviewed. Medications: Reviewed: Yes Vitals/I&O/Wt Last Vital Signs Temp 98.0 F 10/14/20 02:28 Pulse 96 10/14/20 06:00 Resp 14 10/14/20 06:00 BP 122/65 10/14/20 06:00 Pulse Ox 95 10/14/20 06:00 10/13/20 10/14/20 10/14/20 22:59 06:59 14:59 Intake Total 363.75 / 1325.235 8022 / 2415.833 Output Total 275 / 275 250 / 525 Balance 88.75 / 1090.833 800 / 1890.833 Physical Exam HENMT: COMMON NORMALS: normocephalic and atraumatic HEAD & SCALP: normocephalic and atraumatic Resp: COMMON NORMALS: clear to auscultation bilaterally EFFORT & INSPECTION: Yes symmetric chest movement AUSCULTATION: clear to auscultation bilaterally Cardio: OTHER: Irregularly irregular rhythm, s1s2 of variable intensity. GI: AUSCULTATION: Yes normoactive bowel sounds RECTAL EXAM: deferred OTHER: Soft, non distended, non tender, incision clean dry and intact Extremity: COMMON NORMALS: no clubbing, cyanosis or edema and no pedal edema Urinary Catheter Management^: Ann: Cath Placed During This Visit: yes Reason for Continuing Indwelling Catheter: Accurate Measurement of Urinary Output in Critically Ill Patients Urinary Catheter Date of Insertion: 10/11/20 Urinary Catheter Time of Insertion: 07:20 Data : 10/14/20 04:03 10/14/20 04:03 Micro: Microbiology 10/11/20 04:35 Urine Culture - Final Urine Catheterized Klebsiella pneumoniae A&P Assessment and plan (1) Atrial flutter with rapid ventricular response: New onset A.flutter/Afib with RVR likely 2/2 to sepsis. Rate ( 120-130 ) 2D Echo: Normal left ventricular size and systolic function, EF 69 %. Moderate left ventricular hypertrophy. No regional wall motion abnormalities. Grade I/IV diastolic dysfunction (abnormal relaxation filling pattern), normal to mildly elevated filling pressures. Moderate aortic valve stenosis with a valve area of 1.3 cm squared-peak velocity of 2.8 m/s. Mildly increased left atrial size. Mild pulmonary valve regurgitation. Trace mitral valve regurgitation. TSH Failed to respond to Cardizem 10 mg I.V * 1 Dose Currently on Cardizem Drip. Cardizem 30 mg POQ6H daily Status: Acute (2) Sepsis: Sepsis delineated by hypotension, tachycardia, fever on admission with site being perforated bowel, currently resolved Continue Zosyn IV Blood cultures thus far without growth Tolerating G.I Soft diet Status: Acute (3) Pneumoperitoneum of unknown etiology: Postoperative exploratory lap and right hemicolectomy Status: Acute (4) UTI (urinary tract infection): IV antibiotics consisting of Zosyn Urine culture Klebisella pneumonaie, appropriately covered currently Status: Acute (5) Hypokalemia: Resolved Status: Acute (6) Heart murmur: Echo with LVEF 69%, moderate LVH, ro RWMA gr 1 diastolic dysfunction, moderate AV stenosis, CHEMA 1.3 cm2 carefully monitor while on IVF no current signs of heart failure Status: Acute Additional A&P Information Bilateral pleural effusions. Chronic. Currently clinically euvolemic, Hypotension. Now resolved. Continue fluids. Pepcid for GI prophylaxis Lovenox for DVT prophylaxis Attestations Medical Necessity Statement*: Per Primary team Procedures Arterial Line Size (Gauge): 20 Coding Level of Care Code Acute Electrical And Instrument Technician for [facility] Fwd Diagnoses Atrial flutter with rapid ventricular response I48.92 Sepsis A41.9 Pneumoperitoneum of unknown etiology K66.8 UTI (urinary tract infection) N39.0 Hypokalemia E87.6 Heart murmur R01.1
[2020-10-14 12:19] LABS: Glucose Point of Care 110 mg/dL (70-110)
--- NOTE | 2020-10-14 13:02 | P.PN_ITS ---
Subjective Subjective: Interval history: Patient has been doing well denies significant abdominal pain, no nausea or vomiting, tolerating full liquid diet, had multiple bowel movements yesterday Medications: Reviewed: Yes Vitals/I&O/Wt Last Vital Signs Temp 98.0 F 10/14/20 02:28 Pulse 96 10/14/20 06:00 Resp 14 10/14/20 06:00 BP 122/65 10/14/20 06:00 Pulse Ox 95 10/14/20 06:00 10/13/20 10/14/20 10/14/20 22:59 06:59 14:59 Intake Total 363.75 / 2415.833 1050 / 2415.833 Output Total 275 / 525 250 / 525 Balance 88.75 / 1890.833 800 / 1890.833 Physical Exam Narrative: EXAM NARRATIVE: Abdomen: Soft, nondistended, nontender, incision clean dry and intact Urinary Catheter Management^: Ann: Cath Placed During This Visit: yes Reason for Continuing Indwelling Catheter: Accurate Measurement of Urinary Output in Critically Ill Patients Urinary Catheter Date of Insertion: 10/11/20 Urinary Catheter Time of Insertion: 07:20 Data : 10/14/20 04:03 10/14/20 04:03 Micro: Microbiology 10/11/20 04:35 Urine Culture - Final Urine Catheterized Klebsiella pneumoniae A&P Assessment and plan (1) S/P right hemicolectomy: 80-year-old female status post right hemicolectomy for cecal stercoral perforation with postop ileus, resolving Continue IV Zosyn as there was significant amount of fecal contamination of the peritoneal cavity Advance to GI soft diet Ambulate with physical therapy Lactulose 15 cc p.o. twice daily for bowel regimen Morphine and [place] for pain control Pepcid for GI prophylaxis SCD Lovenox for DVT prophylaxis Incentive spirometry Transfer to floor, possibly discharge to group home today Status: Acute Attestations Medical Necessity Statement*: Status post right hemicolectomy with postop ileus resolving, DC tomorrow to group home potentially Procedures Arterial Line Size (Gauge): 20 Coding Level of Care Code Acute Audiovisual Lead Technician for [facility] Diagnoses S/P right hemicolectomy Z90.49
[2020-10-14] MEDS: LORazepam 2 mg/mL INJ 1 mL IVP (16:04)
[2020-10-14 17:47] LABS: Glucose Point of Care 101 mg/dL (70-110)
[2020-10-14] MEDS: dilTIAZem 30 mg Tablet PO ×2 (18:19→23:41)
[2020-10-15] VITALS (23 sets, daily range): BP systolic 118–157; BP diastolic 65–120; PULSE 82–118; RESP 14–29; TEMP 36.8–37.1; O2SAT 86–97
[2020-10-15] MEDS: famotidine 20 mg/2 mL INJ IVP ×2 (02:45→13:24)
[2020-10-15 04:08] LABS: Basophils % 0.3 %; Eosinophils # 0.1 10^3/uL (0.0-0.8); Eosinophils % 0.6 %; Hematocrit 34.3 % (37.0-47.0); Hemoglobin 10.3 g/dL (11.5-15.3); Lymphocytes # 0.8 10^3/uL (0.8-4.8); Mean Corpuscular Hemoglobin 29.4 pg (28.0-34.0); Monocytes # 0.7 10^3/uL (0.2-0.9); Monocytes % 5.6 %; Neutrophils # 9.95 10^3/uL (1.8-7.7); Neutrophils % 85.1 %; Nucleated Red Blood Cells % 0 %; Platelet Count 226 10^3/cmm (130-400); Red Cell Distribution Width 14.3 % (12.1-15.1); White Blood Count 11.7 10^3/uL (4.0-10.0)
[2020-10-15 04:22] LABS: Anion Gap 9.8 (5-19); Blood Urea Nitrogen 17 mg/dL (8-23); Calcium 7.5 mg/dL (8.5-10.5); Carbon Dioxide 25 mmol/L (22-29); Chloride 106 mmol/L (98-107); Glucose 76 mg/dL (65-115); Osmolality Calculated 284 mOsm/kg (285-295); Potassium 3.8 mmol/L (3.5-5.1); Sodium 137 mmol/L (136-145)
[2020-10-15] MEDS: piperacillin-tazobactam 3.375 GM in sodium chloride 0.9% (plus) 50 ML IV ×3 (05:26→22:09)
[2020-10-15] MEDS: enoxaparin 40 mg/0.4 mL Syringe SUBCUT (05:27)
[2020-10-15] MEDS: dilTIAZem 30 mg Tablet PO ×4 (05:27→23:07)
[2020-10-15] MEDS: D5-NS 0.45% + KCL 20 mEq 20 MEQ/1,000 ML BAG 75 MEQ IV (06:23)
--- NOTE | 2020-10-15 07:10 | PC.NURSE ---
Consulted with both Dr. Morales and Mckay regarding patient transfer to [facility]. Pt has not required cardizem drip this shift. Baseline rate for shift has been 105 or below. SR with Pac's this am, current rate is more elevated this am 110-115 than solar energy system installer helper. Both physicians verbalized consent for transfer to [facility].
--- NOTE | 2020-10-15 07:54 | PC.NURSE ---
recd. resting quietly. denies pain. midline incision with slight oozing. note is made of large dark area ? bruise [id number] at darkest area with pink radiating out from dark area. another smaller area to left lower quad. large area is to right lower quad.
[2020-10-15] MEDS: morphine 4 mg/mL SDV 1 mL 3 MG IVP (08:30)
--- NOTE | 2020-10-15 08:49 | PC.NURSE ---
pt. crying, asked if she was in pain, nodded yes. m.s. given.
--- NOTE | 2020-10-15 10:38 | PC.CHAP ---
Pastoral Care Encounter/Spiritual Assessment Type of Contact [] Declined detail sergeant visit [] Patient/Family/Request visit [] Outpatient visit [] Follow-up visit [] Physician referral [] Code/Alert [x] Routine visit [] Staff referral [] Actively dying [] Patient sleeping [] Family support [] [] Out of room [] Palliative care [] [] Receiving care in room [] Pre-surgical visit [] Trauma [] Long length of stay [x] ICU visit [] Other: resting well... Relational/Emotional Strength [] Patient feels connected with others/family/visitors/staff [] Distress [] Loneliness/isolation [] Abandonment Spirituality of Patient [] Person of [place]hire [] Attends Adventism of their [place] [] Believes in Prayer [] Reads Bible or Jainism materials [] There are Spiritual issues to be addressed Blanket Winder Operator Interventions [x] Prayer [] Active listening [] Non-anxious presence [] Spiritual/emotional support [] Crisis/trauma care [] Spiritual counseling [] Bereavement support [] Provided bereavement packet [] Provided Bible/devotional materials [] Provided toy/stuffed animal, coloring book to patient or family member [] Provided Communion [] Anointing/[place] [] Salvation [x] Completed spiritual assessment [] Other: Impact on Illness or Injury [] Angry [] Fearful [] Anxious [] Often cries [] Exhaustion [] Unable to work [] Unable to attend restorationism [] Unable to walk/stand [] Unable to read [] Unable to drive [] Unable to eat/drink [] Unable to sleep [] Unable to be with family [] Patient intubated [] Other: Summary Time spent with patient
--- NOTE | 2020-10-15 11:01 | PM.PN ---
Subjective Subjective: Interval history: Patient was seen and examined this morning. H/R is better controlled. Off Cardizem drip. Her other vitals and labs have been reviewed. Medications: Reviewed: Yes Vitals/I&O/Wt Last Vital Signs Temp 98.8 F 10/15/20 08:00 Pulse 102 H 10/15/20 08:00 Resp 19 H 10/15/20 08:00 BP 157/94 10/15/20 08:00 Pulse Ox 90 10/15/20 08:00 10/14/20 10/15/20 10/15/20 22:59 06:59 14:59 Intake Total 1109.833 / 1459.833 873.75 / 2333.583 Output Total 175 / 475 Balance 1109.833 / 1159.833 698.75 / 1858.583 Physical Exam HENMT: COMMON NORMALS: normocephalic and atraumatic HEAD & SCALP: normocephalic and atraumatic Resp: COMMON NORMALS: clear to auscultation bilaterally EFFORT & INSPECTION: Yes symmetric chest movement AUSCULTATION: clear to auscultation bilaterally Cardio: OTHER: Irregularly irregular rhythm, s1s2 of variable intensity. GI: AUSCULTATION: Yes normoactive bowel sounds RECTAL EXAM: deferred OTHER: Soft, non distended, non tender, incision clean dry and intact Extremity: COMMON NORMALS: no clubbing, cyanosis or edema and no pedal edema Urinary Catheter Management^: Ann: Cath Placed During This Visit: yes, but has since been removed by the nurse Reason for Continuing Indwelling Catheter: Accurate Measurement of Urinary Output in Critically Ill Patients Urinary Catheter Date of Insertion: 10/11/20 Urinary Catheter Time of Insertion: 07:20 Date Urinary Catheter Removed: 10/14/20 Time Urinary Catheter Discontinued: 16:00 Data : 10/15/20 03:39 10/15/20 03:39 Micro: Microbiology 10/14/20 13:30 C.difficile Toxin B Gene (PCR) - Final Stool - Stool Aspirate A&P Assessment and plan (1) Atrial flutter with rapid ventricular response: New onset A.flutter/Afib with RVR likely 2/2 to sepsis. Rate ( 120-130 ) 2D Echo: Normal left ventricular size and systolic function, EF 69 %. Moderate left ventricular hypertrophy. No regional wall motion abnormalities. Grade I/IV diastolic dysfunction (abnormal relaxation filling pattern), normal to mildly elevated filling pressures. Moderate aortic valve stenosis with a valve area of 1.3 cm squared-peak velocity of 2.8 m/s. Mildly increased left atrial size. Mild pulmonary valve regurgitation. Trace mitral valve regurgitation. TSH Failed to respond to Cardizem 10 mg I.V * 1 Dose Initially on Cardizem Drip. Currently on Cardizem 30 mg POQ6H daily Status: Acute (2) Sepsis: Sepsis delineated by hypotension, tachycardia, fever on admission with site being perforated bowel, currently resolved Continue Zosyn IV Blood cultures thus far without growth Tolerating G.I Soft diet Status: Acute (3) Pneumoperitoneum of unknown etiology: Postoperative exploratory lap and right hemicolectomy Status: Acute (4) UTI (urinary tract infection): IV antibiotics consisting of Zosyn Urine culture Klebisella pneumonaie, appropriately covered currently Status: Acute (5) Hypokalemia: Resolved Status: Acute (6) Heart murmur: Echo with LVEF 69%, moderate LVH, ro RWMA gr 1 diastolic dysfunction, moderate AV stenosis, CHEMA 1.3 cm2 carefully monitor while on IVF no current signs of heart failure Status: Acute Additional A&P Information Bilateral pleural effusions. Chronic. Currently clinically euvolemic, Hypotension. Now resolved. Continue fluids. Pepcid for GI prophylaxis Lovenox for DVT prophylaxis Attestations Medical Necessity Statement*: Patient needs to be in hospital for the management of sepsis, afib. Procedures Arterial Line Size (Gauge): 20 Coding Level of Care Code Acute Purse Maker for [facility] Fwd Diagnoses Atrial flutter with rapid ventricular response I48.92 Sepsis A41.9 Pneumoperitoneum of unknown etiology K66.8 UTI (urinary tract infection) N39.0 Hypokalemia E87.6 Heart murmur R01.1
[2020-10-15] MEDS: lactulose oral liq 20 gm/30 mL UDC 10 GM PO ×2 (13:24→23:07)
--- NOTE | 2020-10-15 15:55 | P.PN_ITS ---
Subjective Subjective: Interval history: Patient had been agitated overnight and became tachycardic and was diagnosed with new onset atrial fibrillation and started on IV Cardizem Vitals/I&O/Wt Last Vital Signs Temp 98.8 F 10/15/20 08:00 Pulse 95 10/15/20 14:00 Resp 17 10/15/20 14:00 BP 150/120 10/15/20 14:00 Pulse Ox 94 10/15/20 14:00 10/15/20 10/15/20 10/15/20 06:59 14:59 22:59 Intake Total 873.75 / 2333.583 50 / 50 Output Total 175 / 475 Balance 698.75 / 1858.583 50 / 50 Physical Exam Narrative: EXAM NARRATIVE: Abdomen: Soft, nontender, nondistended, incision clean dry intact Urinary Catheter Management^: Ann: Cath Placed During This Visit: yes, but has since been removed by the nurse Reason for Continuing Indwelling Catheter: Accurate Measurement of Urinary Output in Critically Ill Patients Urinary Catheter Date of Insertion: 10/11/20 Urinary Catheter Time of Insertion: 07:20 Date Urinary Catheter Removed: 10/14/20 Time Urinary Catheter Discontinued: 16:00 Data : 10/15/20 03:39 10/15/20 03:39 Micro: Microbiology 10/14/20 13:30 C.difficile Toxin B Gene (PCR) - Final Stool - Stool Aspirate A&P Assessment and plan (1) S/P right hemicolectomy: 80-year-old female status post right hemicolectomy for cecal stercoral perforation with postop ileus Continue IV Zosyn as there was significant amount of fecal contamination of the peritoneal cavity GI soft diet Ambulate with physical therapy Lactulose 15 cc p.o. twice daily for bowel regimen DC morphine due to agitation/confusion, [place] for pain control DC Pepcid SCD Lovenox for DVT prophylaxis Incentive spirometry, wean O2 to room air Decrease IV fluids to 30 cc/h Transfer to floor Heart rate better controlled on Cardizem 30 mg p.o. every 6 hours Status: Acute (2) Sacral decubitus ulcer, stage II: Wet-to-dry once daily Status: Acute Attestations Medical Necessity Statement*: Status post right hemicolectomy with new onset atrial fibrillation, confusion Procedures Arterial Line Size (Gauge): 20 Coding Level of Care Code Acute Membership Counselor for [facility] Fwd Diagnoses S/P right hemicolectomy Z90.49 Sacral decubitus ulcer, stage II L89.152
--- NOTE | 2020-10-15 17:11 | PC.NURSE ---
pt. has pulled boh ivs out again. these were new starts. confused. large liquid stool earlier not is made of blisters on right darkened area. when rolling to clean pt. large area in upper right quad of what appears to be fluid, and large amt of serousanguinous fluid drained out laprascopic site, as well as from midline incision. dr. lozano made aware of all and note is made of large area of edema to right lateral side.
[2020-10-15] MEDS: dilTIAZem 60 mg Tablet 30 MG PO (20:16)
--- NOTE | 2020-10-15 20:30 | PC.NURSE ---
Pt transferred to room 264 by bed with 1:1 sitter at bedside.
[2020-10-15] MEDS: HYDROcodone-acetaminophen 5-325 mg Tablet 1 TAB PO (22:10)
[2020-10-16] VITALS (8 sets, daily range): BP systolic 130–189; BP diastolic 64–81; PULSE 60–122; RESP 16–19; TEMP 36.2–37.2; O2SAT 91–96
[2020-10-16] MEDS: famotidine 20 mg/2 mL INJ IVP (01:32)
[2020-10-16 06:12] LABS: Basophils % 0.3 %; Eosinophils # 0.1 10^3/uL (0.0-0.8); Eosinophils % 0.6 %; Hematocrit 30.4 % (37.0-47.0); Hemoglobin 9.3 g/dL (11.5-15.3); Lymphocytes % 7.7 %; Mean Corpuscular HGB Conc 30.6 g/dL (30.0-36.0); Mean Corpuscular Hemoglobin 30.2 pg (28.0-34.0); Mean Corpuscular Volume 98.7 fL (81-99); Mean Platelet Volume 9.1 fL (7.4-10.4); Monocytes # 0.8 10^3/uL (0.2-0.9); Monocytes % 6.1 %; Neutrophils # 10.93 10^3/uL (1.8-7.7); Neutrophils % 83.9 %; Nucleated Red Blood Cells % 0 %; Platelet Count 209 10^3/cmm (130-400); Red Blood Count 3.08 10^6/uL (4.1-5.3); Red Cell Distribution Width 14.4 % (12.1-15.1)
[2020-10-16] MEDS: piperacillin-tazobactam 3.375 GM in sodium chloride 0.9% (plus) 50 ML IV (06:25)
[2020-10-16] MEDS: dilTIAZem 30 mg Tablet PO ×2 (06:28→11:04)
[2020-10-16] MEDS: enoxaparin 40 mg/0.4 mL Syringe SUBCUT (06:28)
[2020-10-16] MEDS: D5-NS 0.45% + KCL 20 mEq 20 MEQ/1,000 ML BAG 30 MEQ IV (06:35)
[2020-10-16 06:41] LABS: Anion Gap 9.8 (5-19); Blood Urea Nitrogen 18 mg/dL (8-23); Calcium 7.5 mg/dL (8.5-10.5); Carbon Dioxide 23 mmol/L (22-29); Chloride 108 mmol/L (98-107); Glucose 91 mg/dL (65-115); Osmolality Calculated 285 mOsm/kg (285-295); Potassium 3.8 mmol/L (3.5-5.1); Sodium 137 mmol/L (136-145)
--- NOTE | 2020-10-16 09:43 | PC.CHAP ---
Pastoral Care Encounter/Spiritual Assessment Type of Contact [] Declined shot blast equipment operator visit [] Patient/Family/Request visit [] Outpatient visit [] Follow-up visit [] Physician referral [] Code/Alert [x] Routine visit [] Staff referral [] Actively dying [] Patient sleeping [] Family support [] [] Out of room [] Palliative care [] [] Receiving care in room [] Pre-surgical visit [] Trauma [] Long length of stay [] ICU visit [] Other: Relational/Emotional Strength [] Patient feels connected with others/family/visitors/staff [] Distress [] Loneliness/isolation [] Abandonment Spirituality of Patient [xx] Person of [place]apphire [] Attends Voodoo of their [place] [] Believes in Prayer [] Reads Bible or Scientologist materials [] There are Spiritual issues to be addressed Shore Man Interventions [x] Prayer [x] Active listening [] Non-anxious presence [] Spiritual/emotional support [] Crisis/trauma care [] Spiritual counseling [] Bereavement support [] Provided bereavement packet [] Provided Bible/devotional materials [] Provided toy/stuffed animal, coloring book to patient or family member [] Provided Communion [] Anointing/[place] [] Salvation [x] Completed spiritual assessment [] Other: Impact on Illness or Injury [] Angry [] Fearful [] Anxious [] Often cries [] Exhaustion [] Unable to work [] Unable to attend shinto [] Unable to walk/stand [] Unable to read [] Unable to drive [] Unable to eat/drink [] Unable to sleep [] Unable to be with family [] Patient intubated [] Other: Summary doing good Time spent with patient 10 min
[2020-10-16] MEDS: lactulose oral liq 20 gm/30 mL UDC 10 GM PO ×2 (11:04→23:41)
--- NOTE | 2020-10-16 11:41 | P.PN_ITS ---
Subjective Subjective: Interval history: Patient was seen and examined this morning. H/R is better controlled. Medications: Reviewed: Yes Vitals/I&O/Wt Last Vital Signs Temp 97.2 F L 10/16/20 11:31 Pulse 85 10/16/20 11:31 Resp 17 10/16/20 11:31 BP 132/81 10/16/20 11:31 Pulse Ox 94 10/16/20 11:31 10/15/20 10/16/20 10/16/20 22:59 06:59 14:59 Intake Total 230 / 1130 200 / 1330 170 / 170 Balance 230 / 1130 200 / 1330 170 / 170 Physical Exam HENMT: COMMON NORMALS: normocephalic and atraumatic HEAD & SCALP: normocephalic and atraumatic Resp: COMMON NORMALS: clear to auscultation bilaterally EFFORT & INSPECTION: Yes symmetric chest movement AUSCULTATION: clear to auscultation bilaterally Cardio: OTHER: Irregularly irregular rhythm, s1s2 of variable intensity. GI: AUSCULTATION: Yes normoactive bowel sounds RECTAL EXAM: deferred OTH ER: Soft, non distended, non tender, incision clean dry and intact. erythema on the right lower abdominal wall, nontender. Extremity: COMMON NORMALS: no clubbing, cyanosis or edema and no pedal edema Urinary Catheter Management^: Ann: Cath Placed During This Visit: yes, but has since been removed by the nurse Reason for Continuing Indwelling Catheter: Accurate Measurement of Urinary Output in Critically Ill Patients Urinary Catheter Date of Insertion: 10/11/20 Urinary Catheter Time of Insertion: 07:20 Date Urinary Catheter Removed: 10/14/20 Time Urinary Catheter Discontinued: 16:00 Data : 10/16/20 05:55 10/16/20 05:55 A&P Assessment and plan (1) Atrial flutter with rapid ventricular response: New onset A.flutter/Afib with RVR likely 2/2 to sepsis. Rate ( 120-130 ) 2D Echo: Normal left ventricular size and systolic function, EF 69 %. Moderate left ventricular hypertrophy. No regional wall motion abnormalities. Grade I/IV diastolic dysfunction (abnormal relaxation filling pattern), normal to mildly elevated filling p ressures. Moderate aortic valve stenosis with a valve area of 1.3 cm squared- peak velocity of 2.8 m/s. Mildly increased left atrial size. Mild pulmonary valve regurgitation. Trace mitral valve regurgitation. TSH : 4.55 Failed to respond to Cardizem 10 mg I.V * 1 Dose Initially on Cardizem Drip. Was on Cardizem 30 mg POQ6H daily Have been Switched to Cardizem CD 180 MG PO Daily Currently H/R is better controlled. Status: Acute (2) Sepsis: Sepsis delineated by hypotension, tachycardia, fever on admission with site being perforated bowel, currently resolved Initially on Zosyn IV. Has been switched to oral levofloxacin and metronidazole on 10/16 Blood cultures : No growth. Urine Culture : Kleb.P : Sensitive to levofloxacin. C.Diff PCR:Negative. Tolerating G.I Soft diet Status: Acute (3) Pneumoperitoneum of unknown etiology: Postoperative exploratory lap and right hemicolectomy Status: Acute (4) UTI (urinary tract infection): IV antibiotics consisting of Zosyn Urine culture Klebisella pneumonaie, appropriately covered currently Status: Acute (5) Hypokalemia: Resolved Status: Acute (6) Heart murmur: Echo with LVEF 69%, moderate LVH, ro RWMA gr 1 diastolic dysfunction, moderate AV stenosis, CHEMA 1.3 cm2 carefully monitor while on IVF no current signs of heart failure Status: Acute Additional A&P Information Bilateral pleural effusions. Chronic. Currently clinically euvolemic, Hypotension. Now resolved. Continue fluids. Pepcid for GI prophylaxis Lovenox for DVT prophylaxis Attestations Medical Necessity Statement*: Per Primary Team. Procedures Arterial Line Size (Gauge): 20 Coding Level of Care Code Acute Corporate Health Consultant for [facility] Fwd Diagnoses Atrial flutter with rapid ventricular response I48.92 Sepsis A41.9 Pneumoperitoneum of unknown etiology K66.8 UTI (urinary tract infection) N39.0 Hypokalemia E87.6 Heart murmur R01.1
--- NOTE | 2020-10-16 11:46 | P.PN_ITS ---
Subjective Subjective: Interval history: Patient denies any abdominal pain, nausea or vomiting, no significant oral intake, having bowel movements Vitals/I&O/Wt Last Vital Signs Temp 97.2 F L 10/16/20 11:31 Pulse 85 10/16/20 11:31 Resp 17 10/16/20 11:31 BP 132/81 10/16/20 11:31 Pulse Ox 94 10/16/20 11:31 10/15/20 10/16/20 10/16/20 22:59 06:59 14:59 Intake Total 230 / 1330 200 / 1330 170 / 170 Balance 230 / 1330 200 / 1330 170 / 170 Physical Exam Narrative: EXAM NARRATIVE: Abdomen: Soft, nondistended, minimally tender patient has a large area of erythema on the right lower abdominal wall, nontender. Incisions healing well Urinary Catheter Management^: Ann: Cath Placed During This Visit: yes, but has since been removed by the nurse Reason for Continuing Indwelling Catheter: Accurate Measurement of Urinary Output in Critically Ill Patients Urinary Catheter Date of Insertion: 10/11/20 Urinary Catheter Time of Insertion: 07:20 Date Urinary Catheter Removed: 10/14/20 Time Urinary Catheter Discontinued: 16:00 Data : 10/16/20 05:55 10/16/20 05:55 A&P Assessment and plan (1) S/P right hemicolectomy: 80-year-old female status post right hemicolectomy for cecal stercoral perforation with postop ileus Continue IV Zosyn as there was significant amount of fecal contamination of the peritoneal cavity GI soft diet Ambulate with physical therapy Lactulose 15 cc p.o. twice daily for bowel regimen [place] for pain control SCD Lovenox for DVT prophylaxis Incentive spirometry, IV fluids @ 30 cc/h Transfer to floor DC Zosyn, start Levaquin sent for milligram p.o. daily and Flagyl 5 mg 3 times a day Medical management as per Dr. Bashir Status: Acute (2) Sacral decubitus ulcer, stage II: Wet-to-dry once daily Status: Acute Attestations Medical Necessity Statement*: Status post right hemicolectomy requiring 1 more night of hospital stay, hopefully discharged to detention tomorrow Procedures Arterial Line Size (Gauge): 20 Coding Level of Care Code Acute Marketing And Communications Officer for [facility] Fwd Diagnoses S/P right hemicolectomy Z90.49 Sacral decubitus ulcer, stage II L89.152
[2020-10-16] MEDS: dilTIAZem ER (24HR) 180 mg Capsule PO (13:02)
[2020-10-16] MEDS: metroNIDAZOLE 500 MG Tablet PO ×2 (15:16→21:28)
--- NOTE | 2020-10-16 16:19 | PC.SOCIAL ---
*IMM Updated* Patient received updated IMM. This senior grant writer initialled and placed in chart.
--- NOTE | 2020-10-16 16:29 | PC.NURSE ---
Patient pulled out her IV. Spoke with Dr Bashir and he said to go ahead and leave it out since the patient is a hard stick. He will change orders to PO
[2020-10-17] VITALS (8 sets, daily range): BP systolic 117–125; BP diastolic 60–72; PULSE 67–93; RESP 17–18; TEMP 36.4–36.8; O2SAT 92–94
--- NOTE | 2020-10-17 00:11 | PC.PHAR ---
Levaquin dosage is adjusted from 750mg p.o. every 24 hours to 750mg p.o. every 48 hours due to reatinine clearance of 45.76.
[2020-10-17 06:19] LABS: Basophils % 0.4 %; Eosinophils # 0.1 10^3/uL (0.0-0.8); Eosinophils % 0.5 %; Hematocrit 29.3 % (37.0-47.0); Hemoglobin 8.7 g/dL (11.5-15.3); Lymphocytes # 0.9 10^3/uL (0.8-4.8); Lymphocytes % 8.5 %; Mean Corpuscular HGB Conc 29.7 g/dL (30.0-36.0); Mean Corpuscular Hemoglobin 29.8 pg (28.0-34.0); Mean Corpuscular Volume 100.3 fL (81-99); Mean Platelet Volume 9.2 fL (7.4-10.4); Monocytes # 0.6 10^3/uL (0.2-0.9); Monocytes % 5.1 %; Neutrophils # 9.31 10^3/uL (1.8-7.7); Neutrophils % 83.9 %; Nucleated Red Blood Cells % 0 %; Platelet Count 197 10^3/cmm (130-400); Red Blood Count 2.92 10^6/uL (4.1-5.3); Red Cell Distribution Width 14.6 % (12.1-15.1); White Blood Count 11.1 10^3/uL (4.0-10.0)
[2020-10-17] MEDS: enoxaparin 40 mg/0.4 mL Syringe SUBCUT (06:21)
[2020-10-17] MEDS: levoFLOXacin 750 mg Tablet PO (06:22)
[2020-10-17 06:41] LABS: Anion Gap 10.5 (5-19); Blood Urea Nitrogen 16 mg/dL (8-23); Calcium 7.1 mg/dL (8.5-10.5); Carbon Dioxide 24 mmol/L (22-29); Chloride 110 mmol/L (98-107); Glucose 76 mg/dL (65-115); Osmolality Calculated 292 mOsm/kg (285-295); Potassium 3.5 mmol/L (3.5-5.1); Sodium 141 mmol/L (136-145)
[2020-10-17] MEDS: dilTIAZem ER (24HR) 180 mg Capsule PO (08:22)
[2020-10-17] MEDS: metroNIDAZOLE 500 MG Tablet PO ×2 (08:22→15:47)
--- NOTE | 2020-10-17 14:21 | P.PN_ITS ---
Subjective Subjective: Interval history: No issues overnight, blood pressure and heart rate is controlled, had bowel movements, afebrile, denies any significant abdominal pain Vitals/I&O/Wt Last Vital Signs Temp 98.1 F 10/17/20 11:54 Pulse 68 10/17/20 11:54 Resp 17 10/17/20 11:54 BP 120/60 10/17/20 11:54 Pulse Ox 92 10/17/20 11:54 10/16/20 10/17/20 10/17/20 22:59 06:59 14:59 Intake Total 1000 / 1170 Balance 1000 / 1170 Physical Exam Narrative: EXAM NARRATIVE: Abdomen: Soft, nondistended, minimally tender, inci [place] clean dry and intact, erythema right lower quadrant abdominal wall appears stable Urinary Catheter Management^: Ann: Cath Placed During This Visit: yes, but has since been removed by the nurse Reason for Continuing Indwelling Catheter: Accurate Measurement of Urinary Output in Critically Ill Patients Urinary Catheter Date of Insertion: 10/11/20 Urinary Catheter Time of Insertion: 07:20 Date Urinary Catheter Removed: 10/14/20 Time Urinary Catheter Discontinued: 16:00 Data : 10/17/20 05:53 10/17/20 05:53 Micro: Microbiology 10/11/20 15:04 Blood Culture - Final Blood NO GROWTH AFTER 5 DAYS 10/11/20 14:58 Blood Culture - Final Blood NO GROWTH AFTER 5 DAYS A&P Assessment and plan (1) S/P right hemicolectomy: Doing well Advance diet as tolerated DC home today Status: Acute (2) Atrial flutter with rapid ventricular response: Stable on Cardizem 180 mg p.o. daily Status: Acute (3) Sacral decubitus ulcer, stage II: Continue wet-to-dry dressing change daily Status: Resolved (4) Pressure ulcer, other site: Area of erythema on the abdominal wall appears stable, no specific treatment required Status: Resolved Attestations Medical Necessity Statement*: Status post hemicolectomy doing well Procedures Arterial Line Size (Gauge): 20 Coding Level of Care Code Acute Senior Director Of [employer] for [facility] Fwd Diagnoses S/P right hemicolectomy Z90.49 Atrial flutter with rapid ventricular response I48.92 Sacral decubitus ulcer, stage II L89.152 Pressure ulcer, other site L89.899
--- NOTE | 2020-10-17 14:25 | P.DS_ITS ---
Discharge Providers Date of Admission: 10/11/20 11:20 Date of Discharge: October 17, 2020 Attending Provider at Admission: Luis Morales MD Attending Provider at Discharge: Leonel Bashir MD Primary Care Provider: Emily Cabral DO Diagnoses at Discharge Discharge Diagnosis (1) S/P right hemicolectomy: Status: Acute (2) Atrial flutter with rapid ventricular response: Status: Acute (3) Sacral decubitus ulcer, stage II: Status: Resolved (4) Pressure ulcer, other site: Status: Resolved Reason for Visit Reason for Visit: ABD PAIN , BLOOD IN STOOL Hospital Course Hospital Course Munira Crawford is a 80 year old female who lives at [facility] who presents to the ER with 2-day history of abdominal pain. Patient appears to be a bit confused, denies any nausea or vomiting. She appears to be on multiple medications for a bowel regimen. CT scan in the ER showed pneumoperitoneum of unknown etiology. Patient is currently hemodynamically stable. Patient is taken to the operating room where she underwent right hemicolectomy for perforated cecum. By postop day 2 patient had return of bowel function and by day 3 she was tolerating a regular diet and her vital signs are stable. On day 3 she went into atrial fibrillation with RVR and was started on IV Cardizem and subsequently transition to p.o. Cardizem. Patient also has a stage III decubitus sacral ulcer which is being managed with wet-to-dry dressing change. She developed an area of erythema on the right lower quadrant which has remained stable over the last 48 hours, most likely drug-induced. No specific treatment required. Physical Exam Urinary Catheter Management^: Ann: Cath Placed During This Visit: yes, but has since been removed by the nurse Reason for Continuing Indwelling Catheter: Accurate Measurement of Urinary Output in Critically Ill Patients Urinary Catheter Date of Insertion: 10/11/20 Urinary Catheter Time of Insertion: 07:20 Date Urinary Catheter Removed: 10/14/20 Time Urinary Catheter Discontinued: 16:00 Discharge Data Data Completed and Pending: Completed Studies During Hospitalization Category Date Time Status CT abdomen pelvis w con* [id number] Urge nt Cat Scan 10/11/20 04:12 Completed XR chest 1V chani ble [id number] Routine Exams 10/12/20 10:06 Completed Pathology: Surgic al [PTH] Routine Pth 10/11/20 08:53 Completed CV echo complete* [id number] Routine Ultrasound 10/11/20 13:14 Completed Pending at discharge Category Date Time Status ES surgery / GI i mages Routine Exams 10/11/20 06:07 Taken Labs from last 24 hours 10/17/20 10/17/20 05:53 05:53 WBC 11.1 H RBC 2.92 L Hgb 8.7 L Hct 29.3 L MCV 100.3 H MCH 29.8 MCHC 29.7 L RDW 14.6 Plt Count 197 MPV 9.2 Neut % (Auto) 83.9 Lymph % (Auto) 8.5 [place] % (Auto) 5.1 Eos % (Auto) 0.5 Baso % (Auto) 0.4 Neut # (Auto) 9.31 H Lymph # (Auto) 0.9 [place] # (Auto) 0.6 Eos # (Auto) 0.1 Baso # (Auto) 0.0 Nucleated RBC % (a uto) 0 Nucleated RBCs # 0.0 Sodium 141 Potassium 3.5 Chloride 110 H Carbon Dioxide 24 Anion Gap 10.5 BUN 16 Creatinine 1.1 H GFR Calculation Not Reportable Glucose 76 Calculated Osmolal ity 292 Calcium 7.1 L Vitals: Last Vital Signs Temp 98.1 F 10/17/20 11:54 Pulse 68 10/17/20 11:54 Resp 17 10/17/20 11:54 BP 120/60 10/17/20 11:54 Pulse Ox 92 10/17/20 11:54 Discharge Plan Discharge Patient Disposition: Home Condition: Stable Prescriptions: New Cardizem CD 180 mg capsule,extended release 24hr 180 mg PO DAILY Qty: 30 RF: 0 Zofran 4 mg tablet 4 mg PO Q6H PRN (Reason: nausea and vomiting) Qty: 20 RF: 0 Flagyl 500 mg tablet 500 mg PO Q8H 7 Days Qty: 21 RF: 0 levofloxacin 750 mg tablet 750 mg PO DAILY 7 Days RF: 0 lactulose 10 gram/15 mL solution 15 ml PO BID Qty: 237 RF: 2 Continued acetaminophen 325 mg Tablet 650 mg PO Q4H PRN (Reason: Pain) RF: 0 bisacodyl 10 mg Suppository 10 mg SC DAILY PRN (Reason: Constipation) RF: 0 Protonix 40 mg Tablet,Delayed Release (Dr/Ec) 40 mg PO BID RF: 0 iron 325 mg (65 mg iron) Tablet 325 mg PO BID RF: 0 Enema Disposable 19-7 gram/118 mL Enema 118 ml SC DAILY PRN (Reason: Constipation) RF: 0 ondansetron 4 mg Tablet,Disintegrating 4 mg PO Q4H PRN (Reason: Nausea And Vomiting) RF: 0 Prostat 30 ml PO BID RF: 0 Senna-S 8.6-50 mg Tablet 2 tab PO BID PRN (Reason: Constipation) Qty: 0 RF: 0 Discontinued magnesium hydroxide [Milk of Magnesia] 400 mg/5 mL Suspension 30 ml PO DAILY PRN (Reason: Constipation) RF: 0 polyethylene glycol 3350 [Miralax] 17 gram Powder In Packet 17 g PO DAILY PRN (Reason: Constipation) RF: 0 Discharge Orders: Discharge Order (Routine); Ordered 10/17/20 Ordered By: Luis Morales Referrals: Luis Morales MD [Physician] - 10/25/20 Emily Cabral DO [Primary Care Provider] - 2 weeks Discharge Diet: Advance as tolerated Activity Restrictions/Additional Instructions: 1. Up and walking as tolerated. 2. Ok to shower 3. keep incision clean and dry 4. Do not lift more than 10 pounds. 5. Advised to return to ER or contact my office if there are any signs of infection like, increasing pain, fevers, chills, redness or drainage of pus. 7. wet to dry once daily for sacral decubitus ulcer Discharge Attestations Time Spent in Discharge Care*: less than 30 min Quality Metrics Clinical Quality Measures During this hospital stay, did patient experience: None Coding Level of Care Code Acute Applications Manager for [facility] Fwd Diagnoses S/P right hemicolectomy Z90.49 Atrial flutter with rapid ventricular response I48.92 Sacral decubitus ulcer, stage II L89.152 Pressure ulcer, other site L89.899
--- NOTE | 2020-10-17 20:20 | PM.PN ---
Subjective Subjective: Interval history: No issues overnight, blood pressure and heart rate is controlled, had bowel movements, afebrile, denies any significant abdominal pain Medications: Reviewed: Yes Vitals/I&O/Wt Last Vital Signs Temp 98.3 F 10/17/20 16:28 Pulse 67 10/17/20 16:28 Resp 18 10/17/20 16:28 BP 125/63 10/17/20 16:28 Pulse Ox 93 10/17/20 16:28 10/17/20 10/17/20 10/17/20 06:59 14:59 22:59 Intake Total Balance Physical Exam HENMT: COMMON NORMALS: normocephalic and atraumatic HEAD & SCALP: normocephalic and atraumatic Resp: COMMON NORMALS: clear to auscultation bilaterally EFFORT & INSPECTION: Yes symmetric chest movement AUSCULTATION: clear to auscultation bilaterally Cardio: OTHER: Irregularly irregular rhythm, s1s2 of variable intensity. GI: AUSCULTATION: Yes normoactive bowel sounds RECTAL EXAM: deferred OTHER: Soft, non distended, non tender, incision clean dry and intact. erythema on the right lower abdominal wall, nontender. Extremity: COMMON NORMALS: no clubbing, cyanosis or edema and no pedal edema Urinary Catheter Management^: Ann: Cath Placed During This Visit: yes, but has since been removed by the nurse Reason for Continuing Indwelling Catheter: Accurate Measurement of Urinary Output in Critically Ill Patients Urinary Catheter Date of Insertion: 10/11/20 Urinary Catheter Time of Insertion: 07:20 Date Urinary Catheter Removed: 10/14/20 Time Urinary Catheter Discontinued: 16:00 Data : 10/17/20 05:53 10/17/20 05:53 Micro: Microbiology 10/11/20 15:04 Blood Culture - Final Blood NO GROWTH AFTER 5 DAYS 10/11/20 14:58 Blood Culture - Final Blood NO GROWTH AFTER 5 DAYS A&P Assessment and plan (1) Atrial flutter with rapid ventricular response: New onset A.flutter/Afib with RVR likely 2/2 to sepsis. Rate ( 120-130 ) 2D Echo: Normal left ventricular size and systolic function, EF 69 %. Moderate left ventricular hypertrophy. No regional wall motion abnormalities. Grade I/IV diastolic dysfunction (abnormal relaxation filling pattern), normal to mildly elevated filling pressures. Moderate aortic valve stenosis with a valve area of 1.3 cm squared-peak velocity of 2.8 m/s. Mildly increased left atrial size. Mild pulmonary valve regurgitation. Trace mitral valve regurgitation. TSH : 4.55 Failed to respond to Cardizem 10 mg I.V * 1 Dose Initially on Cardizem Drip. Was on Cardizem 30 mg POQ6H daily Have been Switched to Cardizem CD 180 MG PO Daily Currently H/R is better controlled. Status: Acute (2) Sepsis: Sepsis delineated by hypotension, tachycardia, fever on admission with site being perforated bowel, currently resolved Initially on Zosyn IV. Has been switched to oral levofloxacin and metronidazole on 10/16 Blood cultures : No growth. Urine Culture : Kleb.P : Sensitive to levofloxacin. C.Diff PCR:Negative. Tolerating G.I Soft diet Status: Resolved (3) Pneumoperitoneum of unknown etiology: Postoperative exploratory lap and right hemicolectomy Status: Resolved (4) UTI (urinary tract infection): IV antibiotics consisting of Zosyn Urine culture Klebisella pneumonaie, appropriately covered currently Status: Resolved (5) Hypokalemia: Resolved Status: Resolved (6) Heart murmur: Echo with LVEF 69%, moderate LVH, ro RWMA gr 1 diastolic dysfunction, moderate AV stenosis, CHEMA 1.3 cm2 carefully monitor while on IVF no current signs of heart failure Status: Resolved Additional A&P Information Bilateral pleural effusions. Chronic. Currently clinically euvolemic, Hypotension. Now resolved. Continue fluids. Pepcid for GI prophylaxis Lovenox for DVT prophylaxis Attestations Medical Necessity Statement*: Per Primary Team Procedures Arterial Line Size (Gauge): 20 Coding Level of Care Code Acute Shake Backboard Notcher for Chg Fwd Diagnoses Atrial flutter with rapid ventricular response I48.92 Sepsis A41.9 Pneumoperitoneum of unknown etiology K66.8 UTI (urinary tract infection) N39.0 Hypokalemia E87.6 Heart murmur R01.1
== END 2020-10-17 14:20 | disposition skilled nursing facility (03) | DRG 853 ==
LOC: ER 05:06 → ICU 13:01 → MEDSURG 10-15 20:34
PROVIDERS: Internal Medicine; Admitting Provider Surgery; Emergency Provider Emergency Medicine; PCP Family Medicine; Visit Provider Internal Medicine
PROC: 0DTE4ZZ Resection of Large Intestine, Percutaneous Endoscopic Approach (ICD-10-PCS; principal; 2020-10-11 05:55)
DX: A41.9 Sepsis, unspecified organism (principal); L89.153 Pressure ulcer of sacral region, stage 3; K63.1 Perforation of intestine (nontraumatic); N39.0 Urinary tract infection, site not specified; J90 Pleural effusion, not elsewhere classified; I48.92 Unspecified atrial flutter; Z87.891 Personal history of nicotine dependence; I37.1 Nonrheumatic pulmonary valve insufficiency; I34.0 Nonrheumatic mitral (valve) insufficiency; I95.9 Hypotension, unspecified; B96.1 Klebsiella pneumoniae [K. pneumoniae] as the cause of diseases classified elsewhere; R01.1 Cardiac murmur, unspecified; N81.2 Incomplete uterovaginal prolapse; E87.6 Hypokalemia; I48.91 Unspecified atrial fibrillation
CPT/HCPCS: 36415; 36416; 51702; 71045; 74177; 80048; 80053; 81001; 82962; 83605; 83690; 83735; 84443; 85025; 87040; 87077; 87086; 87186; 87493; 88309; 93005; 93306; 96365; 96372; 97110; 97161; 97530; 99291; C9290; J0330; J1650; J1940; J2060; J2270; J2370; J2405; J2543; J2704; J3010; J3480; J3490; J7030; J7040; P9041; P9047; Q3014; Q9967

== ENCOUNTER 2020-10-18 09:10 | Outpatient (CLI) | payer MEDICARE, SELFPAY ==
[2020-10-18 09:21] LABS: Basophils % 0.4 %; Eosinophils % 0.4 %; Hematocrit 30.6 % (37.0-47.0); Hemoglobin 9.1 g/dL (11.5-15.3); Lymphocytes % 10.1 %; Mean Corpuscular HGB Conc 29.7 g/dL (30.0-36.0); Mean Platelet Volume 9.3 fL (7.4-10.4); Monocytes # 0.4 10^3/uL (0.2-0.9); Monocytes % 4.5 %; Neutrophils # 7.96 10^3/uL (1.8-7.7); Neutrophils % 82.4 %; Nucleated Red Blood Cells % 0 %; Platelet Count 182 10^3/cmm (130-400); Red Blood Count 3.03 10^6/uL (4.1-5.3); Red Cell Distribution Width 14.6 % (12.1-15.1); White Blood Count 9.7 10^3/uL (4.0-10.0)
[2020-10-18 09:44] LABS: Alanine Aminotransferase < 5 U/L (0-33); Albumin Level 1.6 g/dL (3.5-5.2); Alkaline Phosphatase 117 IU/L (35-105); Anion Gap 11.6 (5-19); Aspartate Amino Transferase 7 U/L (0-32); Blood Urea Nitrogen 14 mg/dL (8-23); Calcium 7.5 mg/dL (8.5-10.5); Carbon Dioxide 23 mmol/L (22-29); Chloride 109 mmol/L (98-107); Globulin 2.4 g/dL (1.3-4.6); Glucose 81 mg/dL (65-115); Osmolality Calculated 290 mOsm/kg (285-295); Potassium 3.6 mmol/L (3.5-5.1); Sodium 140 mmol/L (136-145); Total Bilirubin 0.3 mg/dL (0.15-1.2)
== END 2020-10-18 09:11 | disposition home or self-care (01) ==
LOC: LAB 09:12
PROVIDERS: PCP Family Medicine; Visit Provider Nurse Practitioner Family
DX: D64.9 Anemia, unspecified (principal)
CPT/HCPCS: 80053; 85025